=== PATIENT | female | born 1955 | race Caucasian/White ===

== ENCOUNTER 2017-09-17 13:49 | Emergency (ER) | payer MEDICARE ==
--- NOTE | 2017-09-17 15:28 | ULT ---
RIGHT LOWER EXTREMITY VENOUS DUPLEX STUDY: Date: 09/17/17 HISTORY: Right lower extremity pain and edema. FINDINGS: Deep veins of right lower extremity evaluated with color Doppler ultrasound and spectral analysis. Co mpression studies performed. FINDINGS: Common femoral, profunda femoral, superficial femoral, popliteal, greater saphenous, and posterior ti bial veins evaluated. These veins showed normal compression and blood flow. No evidence of deep venou s thrombosis identified. IMPRESSION: No evidence of right lower extremity deep venous thrombosis. POS: [facility]
--- NOTE | 2017-09-17 15:31 | RAD ---
RIGHT FOOT 3 VIEWS: Date: 09/17/17 HISTORY: Right foot pain and swelling. FINDINGS: Enthesophyte from plantar calcaneus. Tarsals appear unremarkable. Mild DJD at the first tarsometatars al joint. No fracture or acute abnormality. IMPRESSION: No acute osseous abnormality identified. POS: [facility]
[2017-09-17 16:46] LABS: #Basophils 0.1 thou/uL (0.0-0.2); #Eosinphils 0.1 thou/uL (0.0-0.7); #Monocytes 0.5 thou/uL (0.11-0.59); #Neutrophils 6.6 thou/uL (1.40-6.50); %Eosinophils 1.6 % (0.0-10.0); %Monocytes 5.6 % (0.0-10.0); Hematocrit 36.6 % (36.0-47.0); Mean Platelet Volume 7.2 fL (7.4-10.4); Red Blood Cell (RBC) Count 4.22 mill/uL (4.20-5.40); White Blood Cell (WBC) Count 9.3 thou/uL (4.8-10.8)
[2017-09-17 17:13] LABS: ALT (SGPT) 8 U/L (8-55); AST (SGOT) 10 U/L (5-34); Alkaline Phosphatase 107 U/L (40-150); Anion Gap 13 mmol/L (10-20); BUN (Urea Nitrogen) 5 mg/dL (9.8-20.1); Bilirubin, Total 0.3 mg/dL (0.2-1.2); CK (CPK) 60 U/L (29-168); Calc. Creatinine Clearance 0 mL/min (70-130); Calcium 9.1 mg/dL (7.8-10.44); Carbon Dioxide 27 mmol/L (23-31); Chloride 104 mmol/L (98-107); Estimated GFR-MDRD 61; Globulin 3.1 g/dL (2.4-3.5); Lipase 39 U/L (8-78); Protein, Total 6.9 g/dL (6.0-8.3)
[2017-09-17 17:17] LABS: Troponin I Less than 0.010 ng/mL (< 0.028)
--- NOTE | 2017-09-17 17:49 | RAD ---
EXAM: ONE VIEW CHEST 09/17/17 HISTORY: Cough. COMPARISON: 07/01/13 FINDINGS: Portable upright chest: Atherosclerosis of the aorta. Normal cardiac silhouette. Pulmonary vessels are slightly prominent. No consolidation or mass. No pneumothorax. No acute osseous abnormalities. Old left rib fractures noted . IMPRESSION: Mild pulmonary vascular prominence. POS: [facility]
--- NOTE | 2017-10-07 13:54 | EKG ---
Test Reason : Blood Pressure : / mmHG Vent. Rate : 076 BPM Atrial Rate : 076 BPM P-R Int : 196 ms QRS Dur : 144 ms QT Int : 422 ms P-R-T Axes : 049 -01 117 degrees QTc Int : 474 ms Sinus rhythm with occasional Premature ventricular complexes Left bundle branch block Abnormal ECG Confirmed by JOE SCHULZ, SIMIN ([id number]), development editor LAURY MERRILL ([id number]) on 10/07/2017 1:52:37 PM Referred By: Confirmed By:SIMIN DIAZ MD
== END 2017-09-17 18:00 | disposition home or self-care (01) ==
LOC: ERS 13:49
DX: M79.89 Other specified soft tissue disorders (principal); I25.10 Atherosclerotic heart disease of native coronary artery without angina pectoris; E11.9 Type 2 diabetes mellitus without complications; J44.9 Chronic obstructive pulmonary disease, unspecified; F32.9 Major depressive disorder, single episode, unspecified; F17.210 Nicotine dependence, cigarettes, uncomplicated
CPT/HCPCS: 36415; 71010; 80053; 82010; 82550; 82553; 83690; 84484; 85025; 93005; 99406

== ENCOUNTER 2018-05-24 18:02 | Emergency (ER) | payer MEDICAID, MEDICARE ==
[2018-05-24] MEDS ORDERED: Adacel (T-DAP) 0.5 ML VIAL ONE (18:58)
[2018-05-24] MEDS ORDERED: traMADol HCl 50 MG TAB ONE (19:11)
--- NOTE | 2018-05-24 19:25 | RAD ---
FRONTAL AND LATERAL IMAGING OF THE RIGHT TIBIA AND FIBULA: 05/24/18 COMPARISON: None. HISTORY: Fall. FINDINGS: The proximal tibia and fibula are not fully imaged on this examination. Imaged portions of the right tibia and fibula demonstrate no displaced fracture or evidence of dislocation. IMPRESSION: No acute findings. POS: [facility]
--- NOTE | 2018-05-24 19:27 | RAD ---
FRONTAL RADIOGRAPH PELVIS 05/24/18 COMPARISON: None. HISTORY: Fall. FINDINGS: There are atherosclerotic calcifications within the medial aspect of bilateral proximal thighs. There is atherosclerotic calcification within the pelvis as well. The pelvic ring is intact. There is no w idening of the sacroiliac joints of the pubic symphysis. The femoral heads project normally over thei r respective acetabulum. No displaced fracture or evidence of dislocation seen. IMPRESSION: No acute findings. POS: [facility]
--- NOTE | 2018-05-24 19:29 | RAD ---
FOUR VIEWS OF THE RIGHT KNEE: 05/24/18 COMPARISON: 12/29/03 HISTORY: Fall. FINDINGS: There is a prominent knee joint effusion with joint capsular distention. There is atherosclerotic matilda cification posterior to the distal femur and the knee joint. There is a comminuted and impacted fract ure of the lateral tibial plateau. No evidence for dislocation. IMPRESSION: Fracture of the lateral tibial plateau with an associated prominent knee joint effusion. Orthopedic c onsultation advised. POS: [facility]
--- NOTE | 2018-05-24 19:30 | RAD ---
TWO VIEWS OF THE RIGHT HIP 05/24/18 COMPARISON: None. HISTORY: Fall. FINDINGS: There is mild superior joint space narrowing with mild lateral acetabular osteophyte formation. There is no displaced fracture or evidence of dislocation seen. There is atherosclerotic calcification wit hin the medial right thigh. IMPRESSION: No displaced fracture or evidence of dislocation. POS: [facility]
--- NOTE | 2018-05-24 19:36 | RAD ---
THREE VIEWS OF THE RIGHT HAND: 05/24/18 COMPARISON: None. HISTORY: Fall. FINDINGS: The bones are demineralized. No radiopaque foreign body, subcutaneous gas, displaced fracture, or rodney dence of dislocation is seen. IMPRESSION: No displaced fracture seen. POS: [facility]
--- NOTE | 2018-05-24 19:37 | RAD ---
FRONTAL AND LATERAL IMAGING OF THE RIGHT FOREARM: 05/24/18 COMPARISON: None. HISTORY: Fall. FINDINGS: The bones are demineralized. There is no displaced fracture or evidence of dislocation. IMPRESSION: No acute findings. POS: [facility]
== END 2018-05-24 20:21 | disposition home or self-care (01) ==
LOC: ERS 18:02
DX: S82.201A Unspecified fracture of shaft of right tibia, initial encounter for closed fracture (principal); S51.811A Laceration without foreign body of right forearm, initial encounter; E11.9 Type 2 diabetes mellitus without complications; I25.10 Atherosclerotic heart disease of native coronary artery without angina pectoris; J44.9 Chronic obstructive pulmonary disease, unspecified; F17.210 Nicotine dependence, cigarettes, uncomplicated; Z71.6 Tobacco abuse counseling; W19.XXXA Unspecified fall, initial encounter
CPT/HCPCS: 72170; 90715; 99406

== ENCOUNTER 2018-09-26 15:33 | Inpatient (IN) | payer MEDICARE ==
--- NOTE | 2018-09-26 16:27 | RAD ---
CHEST ONE VIEW: 09/26/18 HISTORY: Syncope. COMPARISON: Radiograph 09/17/17. FINDINGS: Heart size is mildly enlarged. There is dilatation of the pulmonary arteries. There is pulmonary veno us congestion. No pneumothorax. No acute osseous abnormality. IMPRESSION: Cardiomegaly with mild pulmonary venous congestion. POS: [facility]
[2018-09-26 16:46] LABS: #Basophils 0.1 thou/uL (0.0-0.2); #Eosinphils 0.2 thou/uL (0.0-0.7); #Lymphocytes 1.4 thou/uL (1.20-3.40); #Monocytes 0.9 thou/uL (0.11-0.59); #Neutrophils 11.5 thou/uL (1.40-6.50); %Basophils 0.4 % (0.0-1.0); %Eosinophils 1.3 % (0.0-10.0); %Monocytes 6.1 % (0.0-10.0); %Neutrophils 82.2 % (42.0-75.0); Hemoglobin 14.7 g/dL (12.0-16.0); Mean Corpuscular HGB CONC 33.7 g/dL (32.0-36.0); Mean Corpuscular Hemoglobin 29.4 pg (27.0-31.0); Mean Corpuscular Volume 87.2 fL (78.0-98.0); Mean Platelet Volume 7.4 fL (7.4-10.4); Platelet Count 364 thou/uL (130-400); RBC Distribution Width 12.8 % (11.5-14.5); Red Blood Cell (RBC) Count 4.99 mill/uL (4.20-5.40)
--- NOTE | 2018-09-26 16:55 | CT ---
NONCONTRAST HEAD CT: Date: 09/26/18 HISTORY: Syncope and lightheadedness. Weakness. COMPARISON: 02/11/04. TECHNIQUE: A noncontrast head CT is performed from the skull base to the skull vertex. FINDINGS: No parenchymal hemorrhage or extra-axial hematoma. No midline shift. Basilar cisterns are patent. Bra in volume is age-appropriate. Cortical curry-white matter differentiation is preserved. Ventricles and sulci are patent and symmetric. Adequate aeration of the sinuses and mastoid air cells. There is cav ernous carotid atherosclerosis. Calvarium is intact. IMPRESSION: No acute intracranial process. POS: [facility]
[2018-09-26 17:05] LABS: ALT (SGPT) 10 U/L (8-55); AST (SGOT) 9 U/L (5-34); Albumin 4.3 g/dL (3.4-4.8); Alkaline Phosphatase 168 U/L (40-150); Anion Gap 14 mmol/L (10-20); BUN (Urea Nitrogen) 14 mg/dL (9.8-20.1); Bilirubin, Total 0.5 mg/dL (0.2-1.2); Calc. Creatinine Clearance 0 mL/min (70-130); Calcium 10.6 mg/dL (7.8-10.44); Carbon Dioxide 30 mmol/L (23-31); Chloride 97 mmol/L (98-107); Estimated GFR-MDRD 54; Globulin 3.7 g/dL (2.4-3.5); Glucose 225 mg/dL (80-115); Lipase 29 U/L (8-78); Potassium 4.1 mmol/L (3.5-5.1); Sodium 137 mmol/L (136-145)
[2018-09-26] MEDS ORDERED: Acetaminophen 325 MG TAB PO PRN (19:16)
[2018-09-26] MEDS ORDERED: Ondansetron ODT 4 MG TAB PO PRN (19:16)
[2018-09-26] MEDS ORDERED: Ondansetron PF 4 MG/2 ML Vial IVP PRN (19:16)
[2018-09-26] MEDS ORDERED: Dextrose 5% in Water 1,000 ML IV PRN (19:25)
[2018-09-26] MEDS ORDERED: Dextrose 50% Abboject 50 ML SYRINGE SLOW IVP PRN (19:25)
[2018-09-26 20:24] LABS: Troponin I Less than 0.010 ng/mL (< 0.028)
[2018-09-26 20:35] VITALS: BMI 27.3
[2018-09-26] MEDS ORDERED: Atorvastatin Calcium 20 MG TAB PO SCH (21:00)
[2018-09-26] MEDS ORDERED: Lisinopril 20 MG TAB PO SCH (21:00)
[2018-09-26 21:07] LABS: Lactic Acid 1.7 mmol/L (0.5-2.2)
[2018-09-26 21:52] LABS: Bilirubin Negative (Negative); Blood, Urine Negative (Negative); Clarity CLEAR (Clear); Glucose, Urine (Dipstick) 100 mg/dL (Negative); Leukocyte Negative (Negative); Nitrite Negative (Negative); Protein, Urine (Dipstick) Negative (Neg-Trace); Specific Gravity, Urine 1.007 (1.002-1.036); Urobilinogen 0.2 mg/dL (0.2-1.0)
[2018-09-26 22:03] LABS: Bacteria/HPF None Seen HPF (None Seen); Hyaline Casts/LPF 0-3 HYALINE CAST LPF (0-3 Hyaline); RBC/HPF 0-3 HPF (0-3); Squamous Epithelial None Seen HPF (0-3); WBC/HPF None Seen HPF (0-3)
--- NOTE | 2018-09-26 22:11 | PDOC.EVN ---
Event Note - Event Note Event Note: Patient H&P was aborted during dictation. Assessment and plan as below. 1. Possible TIA, obtain MRI for further evaluation. Check carotid doppler. Order PT/OT. 2. Generalized weakness, as above, order PT/OT walking program. 3. Ataxia, hold patient home tramadol, nortriptyline and xanax. Order urine drug screen 4. Leukocytosis, check urinalysis and urine culture if indicated. 5. Hx of DM type II, hold home dose of metformin, start on insulin sliding scale. Accucheks daily. 6. Code Status: FULL CODE.
[2018-09-26] MEDS: Famotidine 20 MG TAB PO SCH (22:14)
[2018-09-26] MEDS: Carvedilol 6.25 MG TAB PO SCH (22:14)
--- NOTE | 2018-09-26 22:14 | ULT ---
CAROTID DOPPLER: 09/26/18 Ultrasound doppler study is performed of the extracranial carotid arteries with color doppler, spectr al analysis and velocity recordings. INDICATION: Unsteady gait. TIA. Ultrasound images show echogenic plaque bilaterally involving both internal carotid arteries. Velocit ies are increased in the right internal carotid artery and measured at 129 cm/s systolic. This does i ndicate hemodynamically significant stenosis in the 50-69% range. Velocities in the left ICA are within normal range. Velocities in the left ECA are incidentally noted to be elevated. Vertebral arteries are antegrade. IMPRESSION: 1. Moderate echogenic plaque bilaterally. 2. Increased velocities in the right internal carotid artery indicate hemodynamically significan tly stenosis. Suggest follow up CT angio of neck. POS: [facility]
[2018-09-26] MEDS: Nicotine 14 MG PATCH TD SCH (22:18)
[2018-09-26 22:52] LABS: Troponin I 0.011 ng/mL (< 0.028)
[2018-09-26 23:25] LABS: Amphetamine Not Detected (NotDetected); Barbiturates Screen Not Detected (NotDetected); Benzodiazepine Screen Detected (NotDetected); Cocaine Metabolite Screen Not Detected (NotDetected); Medtox Reader # READER 4; Methadone Not Detected (NotDetected); Methamphetamine Not Detected (NotDetected); Opiate Screen Detected (NotDetected); Oxycodone Screen Not Detected (NotDetected); Phencyclidine (PCP) Not Detected (NotDetected); THC/Cannabinoid Screen Not Detected (NotDetected); Tricyclic Screen Not Detected (NotDetected)
[2018-09-26 23:26] LABS: Medtox Control Line Valid? VALID (VALID)
[2018-09-27 05:52] LABS: #Basophils 0.1 thou/uL (0.0-0.2); #Eosinphils 0.2 thou/uL (0.0-0.7); #Lymphocytes 1.7 thou/uL (1.20-3.40); #Monocytes 0.8 thou/uL (0.11-0.59); #Neutrophils 8.6 thou/uL (1.40-6.50); %Basophils 0.8 % (0.0-1.0); %Eosinophils 1.4 % (0.0-10.0); %Lymphocytes 14.6 % (21.0-51.0); %Monocytes 7.4 % (0.0-10.0); %Neutrophils 75.8 % (42.0-75.0); Hemoglobin 12.7 g/dL (12.0-16.0); Mean Corpuscular HGB CONC 33.2 g/dL (32.0-36.0); Mean Corpuscular Hemoglobin 28.9 pg (27.0-31.0); Mean Corpuscular Volume 87.2 fL (78.0-98.0); Mean Platelet Volume 7.2 fL (7.4-10.4); Platelet Count 324 thou/uL (130-400); RBC Distribution Width 12.8 % (11.5-14.5); White Blood Cell (WBC) Count 11.3 thou/uL (4.8-10.8)
[2018-09-27 06:06] LABS: Anion Gap 11 mmol/L (10-20); BUN (Urea Nitrogen) 11 mg/dL (9.8-20.1); Calc. Creatinine Clearance 76 mL/min (70-130); Carbon Dioxide 30 mmol/L (23-31); Chloride 102 mmol/L (98-107); Cholesterol 154 mg/dl (< 200 Desired); Estimated GFR-MDRD 68; Glucose 122 mg/dL (80-115); HDL Cholesterol 31 mg/dL (>60 Neg Risk); LDL Cholesterol, Calculated 89 mg/dL; Sodium 139 mmol/L (136-145); Triglycerides 172 mg/dL (Less than 150)
[2018-09-27] MEDS: Enoxaparin Sodium 40 MG/0.4 ML SYRINGE SC SCH (08:37)
[2018-09-27] MEDS: Famotidine 20 MG TAB PO SCH ×2 (08:38→21:25)
[2018-09-27] MEDS: Carvedilol 6.25 MG TAB PO SCH ×2 (08:38→21:25)
[2018-09-27] MEDS: Spironolactone 25 MG TAB PO SCH (08:38)
[2018-09-27] MEDS: Aspirin 81 mg Enteric Coated Tablet PO SCH (08:39)
[2018-09-27] MEDS ORDERED: Non-Formulary Item 1 EACH (Umeclidinium/Vilanterol [Anoro Ellipta 62.5/25 Mcg Inh] 1 PUFF PO SCH (09:00)
[2018-09-27] MEDS ORDERED: Prevnar 13-Val Conj/PF 0.5 ML SYRINGE IM ONE (09:00)
[2018-09-27] MEDS ORDERED: glipiZIDE 10 MG TAB PO SCH (09:00)
--- NOTE | 2018-09-27 10:14 | MRI ---
MRI BRAIN NONCONTRAST: DATE: 09/27/18 HISTORY: 63-year-old female with TIA, ataxia, falls, generalized weakness, dizziness, and lightheadedness. FINDINGS: The ventricles are normal in size and configuration. There is no restricted diffusion, midline shift or any other mass effect, recent intraaxial hemorrhage, or extraaxial fluid collection. There are a few scattered punctate T2-hyperintensities in the cerebral white matter consistent with mild chronic ischemic white matter changes due to mild microvascular atherosclerosis. There are also mild chronic ischemic white matter changes of the james. IMPRESSION: 1. Mild chronic ischemic white matter changes. 2. Otherwise negative. jn[] POS: [facility]
[2018-09-27] MEDS: Nicotine 14 MG PATCH TD SCH (11:15)
[2018-09-27] MEDS: HumaLOG 300 UNITS/3 ML VIAL SC PRN ×3 (11:16→21:28)
--- NOTE | 2018-09-27 13:59 | EKG ---
Test Reason : Blood Pressure : / mmHG Vent. Rate : 082 BPM Atrial Rate : 082 BPM P-R Int : 202 ms QRS Dur : 136 ms QT Int : 406 ms P-R-T Axes : 056 -18 110 degrees QTc Int : 474 ms Normal sinus rhythm Left bundle branch block Abnormal ECG Confirmed by CORNELIO ANGUIANO D.O. ([id number]), industrial editor MONA LEUNG ([id number]) on 09/27/2018 1:59:07 PM Referred By: Confirmed By:CORNELIO ANGUIANO D.O.
[2018-09-27] MEDS ORDERED: predniSONE 20 MG TAB PO SCH (14:16)
--- NOTE | 2018-09-27 14:26 | PDOC.PN ---
- Subjective Encounter Start Date: 09/27/18 Encounter Start Time: 12:00 She was seen while eating lunch. Started coughing excessively. States this happens often when she eats. Cough at baseline, senior living smoker. No painful swallowing or dysphagia. Reports collapse episodes were happening without warning. Occurred when she was sat upright and when standing. No further collapses since admission. Denies chest pain. No palpitations or SOB. No headaches or dizziness. No blurred vision or speech changes. Denies any abdominal pain. No n/v. No bowel changes. Feeling well in herself. - Objective Resuscitation Status - Order Detail: 09/26/18 19:16 Resuscitation Status Routine Co-Sign Provider: Resuscitation Status: FULL: Full Resuscitation MAR Reviewed: Yes Vital Signs & Weight: Vital Signs (12 hours) Temp Pulse Pulse Pulse Resp BP BP 09/27/18 13:39 74 16 09/27/18 13:15 09/27/18 11:51 98.5 F 78 16 09/27/18 09:56 78 79 102/51 L 09/27/18 08:38 121/60 09/27/18 07:42 09/27/18 07:40 71 16 09/27/18 07:29 98.6 F 75 16 09/27/18 04:20 98.5 F 75 20 BP BP Pulse Ox 09/27/18 13:39 09/27/18 13:15 90 L 09/27/18 11:51 104/55 L 89 L 09/27/18 09:56 109/54 L 09/27/18 08:38 09/27/18 07:42 93 L 09/27/18 07:40 09/27/18 07:29 121/60 93 L 09/27/18 04:20 118/56 L 92 L Weight Weight 159 lb 9.6 oz I&O: 09/26/18 09/27/18 09/28/18 06:59 06:59 06:59 Intake Total 100 Output Total 390 Balance -290 Result Diagrams: 09/27/18 05:35 09/27/18 05:35 Additional Labs: Accuchecks 09/27/18 09/27/18 09/26/18 10:46 05:35 21:39 POC Glucose 197 H 121 H 131 H Phys Exam - Physical Examination HEENT: PERRLA, sclera anicteric, oral pharynx no lesions Neck: no nodes, supple Respiratory: no wheezing, no rhonchi Upper airways sounds Cardiovascular: RRR Gastrointestinal: soft, non-tender, no distention, positive bowel sounds Musculoskeletal: no edema, pulses present Neurological: non-focal, normal sensation, moves all 4 limbs Lymphatic: no nodes Psychiatric: normal affect, A&O x 3 Skin: no rash Dx/Plan (1) Collapse Code(s): R55 - SYNCOPE AND COLLAPSE Status: Acute Plan: Carotid US with bilateral plaques, hemodynamically significant stenosis on the right. MRI brain: chronic ischemic changes, no acute abnormalities. Awaiting neuro review. Discussed with Dr. Santana who agrees with Echo. (2) Hypertension Code(s): I10 - ESSENTIAL (PRIMARY) HYPERTENSION Status: Chronic Qualifiers: Hypertension type: essential hypertension Qualified Code(s): I10 - Essential (primary) hypertension Plan: Continue medications. Monitor BP. Check orthostatic BP (3) Chronic kidney disease stage 2 Code(s): N18.2 - CHRONIC KIDNEY DISEASE, STAGE 2 (MILD) Status: Chronic Plan: Continue IV fluids. Comment: Check BMP today - Plan cont current plan of care, speech therapy -: ST to assess for swallowing difficulties/aspiration risk * .
--- NOTE | 2018-09-27 16:03 | CON ---
DATE OF CONSULTATION: 09/27/2018 TYPE OF REPORT: NEUROLOGY CONSULTATION. REASON FOR REFERRAL: Gait problems. HISTORY OF PRESENT ILLNESS: This is a 63-year-old female, who states that for about a week or so, she has had trouble walking. She states she has fallen several times. She denies lightheadedness or vertigo. She states that she will just be walking along and lose her balance. She does not pass out. She states that she hurt the left side of her abdomen with one of her falls. Her chronic medical problems include diabetes, coronary artery disease, CHF, and COPD. ALLERGIES: SHE STATES SHE IS ALLERGIC TO IODINE, BUT SHE STATES THAT SHE DID HAVE A CARDIAC CATH IN THE PAST AND WAS GIVEN BENADRYL AND PREDNISONE FOR TWO DAYS PRIOR TO THE CARDIAC CATH AND DID NOT HAVE ANY ALLERGIC REACTION. SHE ALSO STATES THAT SHE HAS A CHRONIC COUGH. PAST MEDICAL HISTORY: She has had diabetes, coronary artery disease, CHF, and COPD. She states that she has had stents in her heart. SOCIAL HISTORY: History of smoking. Alcohol is negative. FAMILY HISTORY: The patient does not know of any familial diseases. REVIEW OF SYSTEMS: ENT: She has a chronic cough. LUNGS: Occasional shortness of breath. She states she has COPD. HEART: She has a history of heart stent. ABDOMEN: She has some left upper quadrant pain after she fell. : Negative. EXTREMITIES: She states she has some arthritis and she has broken her tibia in the past due to a fall in the past. She states that she stepped off a step that was too high and that, that was not due to this current problem of falling. She denies any neck pain or lower back pain. SKIN: She states that she has bruises all over from recent falling. PHYSICAL EXAMINATION: GENERAL: She is awake and alert. VITAL SIGNS: Pulse is 74, respiratory rate 16, O2 saturation is 90% on 2.5 L/min of nasal cannula oxygen. Blood pressure was 104/55. ENT: Negative. LUNGS: Clear. HEART: No murmurs or gallops. ABDOMEN: Some pain in the left upper quadrant. EXTREMITIES: No clubbing, cyanosis, or edema. SKIN: She has multiple bruises. JOINTS: No swelling. NEUROLOGICAL: She is awake and alert, oriented x3. Cranial nerves 2 through 12 test normally. Carotids, no bruits. Motor 5/5 strength in the arms and legs. DTRs are 2+. Toes are downgoing. Sensation is normal to light touch, position, and vibration sense. Coordination, [id number] and [id number], is normal. DIAGNOSTIC STUDIES: Test results show that she had a CT of the head and an MRI of the brain without contrast, that show some mild chronic small-vessel disease, but no acute strokes. Carotid ultrasound showed that there was some echogenic plaque involving both internal carotid arteries. There was possibly hemodynamically significant stenosis in the right internal carotid artery in the 50% to 69% range. LABORATORY DATA: Sodium was 139, potassium 4.0, CO2 of 30, BUN is 11, creatinine is 0.84, glucose 197. Troponin is 0.011. Triglycerides 172, cholesterol 154. TSH was normal at 0.72. WBC was 11.3, hemoglobin 12.7, hematocrit 38.4, platelets 324,000, neutrophils 75.8, and lymphocytes 14.6. Urinalysis showed some glucose, no wbc's, and no protein. IMPRESSION: Episodes of falling, possibly it is related to peripheral neuropathy due to diabetes. Consider possibly if she has orthostatic hypotension. There does not appear to be any sign of a cerebrovascular accident on her MRI. Consider possibility of B12 deficiency. Also possibility of significant right internal carotid artery stenosis. Note that she has allergy to IV contrast, but has successfully had iodine contrast in the past with a cardiac cath when she had Benadryl and prednisone pre-treatment. PLAN: We will check a B12 level and orthostatic blood pressures. Also, we will get a CTA of the carotids and [place] with contrast, and we will premedicate with Benadryl and prednisone. MRA could alternatively be done, but that would not give us clear picture as a CTA of the neck. Discussed with the patient. Job ID: [id number]
--- NOTE | 2018-09-27 19:18 | PDOC.EVN ---
Event Note - Event Note Event Note: As per Dr. Cordoba, patient will undergo premedication prior to CTA Neck, therefore CTA Neck will not be done until Saturday09/29/2018. Patient with low sats 80-85% on RA. Patient has been noncompliant with Oxygen by [place]. Reports feeling well in herself. No CP/Sob though she seems to be visibly SOB. Advised to keep oxygen on. She has been receiving regular nebs. Patient not normally on oxygen at home. Plan to change to inpatient status, meets criteria due to new onset hypoxia with background of CHF and COPD.
[2018-09-27] MEDS: Atorvastatin Calcium 40 MG TAB PO SCH (21:24)
[2018-09-27] MEDS: diphenhydrAMINE 25 MG CAP PO SCH (21:28)
[2018-09-28 05:59] LABS: #Lymphocytes 0.9 thou/uL (1.20-3.40); #Monocytes 0.5 thou/uL (0.11-0.59); #Neutrophils 9.8 thou/uL (1.40-6.50); %Basophils 0.1 % (0.0-1.0); %Eosinophils 0.2 % (0.0-10.0); %Lymphocytes 8.2 % (21.0-51.0); %Monocytes 4.6 % (0.0-10.0); %Neutrophils 86.9 % (42.0-75.0); Hemoglobin 12.7 g/dL (12.0-16.0); Mean Corpuscular HGB CONC 31.9 g/dL (32.0-36.0); Mean Corpuscular Hemoglobin 27.7 pg (27.0-31.0); Mean Platelet Volume 7.6 fL (7.4-10.4); Platelet Count 332 thou/uL (130-400); RBC Distribution Width 12.8 % (11.5-14.5); Red Blood Cell (RBC) Count 4.57 mill/uL (4.20-5.40); White Blood Cell (WBC) Count 11.3 thou/uL (4.8-10.8)
[2018-09-28 06:13] LABS: ALT (SGPT) Less than 7 U/L (8-55); AST (SGOT) 8 U/L (5-34); Albumin 3.6 g/dL (3.4-4.8); Alkaline Phosphatase 132 U/L (40-150); Anion Gap 11 mmol/L (10-20); BUN (Urea Nitrogen) 17 mg/dL (9.8-20.1); Bilirubin, Total 0.5 mg/dL (0.2-1.2); Calc. Creatinine Clearance 70 mL/min (70-130); Carbon Dioxide 28 mmol/L (23-31); Chloride 98 mmol/L (98-107); Estimated GFR-MDRD 61; Globulin 3.4 g/dL (2.4-3.5); Glucose 290 mg/dL (80-115); Potassium 4.2 mmol/L (3.5-5.1); Sodium 133 mmol/L (136-145)
[2018-09-28] MEDS: HumaLOG 300 UNITS/3 ML VIAL SC PRN ×3 (06:58→22:09)
[2018-09-28] MEDS: diphenhydrAMINE 25 MG CAP PO SCH ×3 (06:58→22:09)
--- NOTE | 2018-09-28 09:53 | PDOC.PN ---
- Subjective Encounter Start Date: 09/28/18 Encounter Start Time: 08:15 -: old records requested/rev Pt seen and examined, chart reviewed, taking over care Pt being held over weekend to premedicate for history of contrast allergy, CTA of head and neck tomorrow No F/C, no N/V/d/C, no sig change in symptoms, appreciate neuro input All systems reviewed and neg x as per HPI - Objective Resuscitation Status - Order Detail: 09/26/18 19:16 Resuscitation Status Routine Co-Sign Provider: Resuscitation Status: FULL: Full Resuscitation MAR Reviewed: Yes Vital Signs & Weight: Vital Signs (12 hours) Temp Pulse Resp BP BP Pulse Ox 09/28/18 08:24 96 09/28/18 08:22 70 20 09/28/18 07:34 98 F 72 18 105/52 L 93 L 09/28/18 03:19 97.5 F L 78 20 118/58 L 92 L 09/28/18 00:17 74 16 96 09/27/18 23:35 97.8 F 81 20 108/52 L 95 Weight Weight 159 lb 9.6 oz I&O: 09/27/18 09/28/18 09/29/18 06:59 06:59 06:59 Intake Total 100 720 Output Total 390 Balance -290 720 Result Diagrams: 09/28/18 05:30 09/28/18 05:30 Additional Labs: Accuchecks 09/28/18 09/27/18 09/27/18 05:55 20:35 17:03 POC Glucose 271 H 273 H 193 H 09/27/18 10:46 POC Glucose 197 H Radiology Reviewed by me: Yes EKG Reviewed by me: Yes Phys Exam - Physical Examination Constitutional: NAD HEENT: PERRLA, moist MMs, sclera anicteric, oral pharynx no lesions Neck: no nodes, no JVD, supple, full ROM Respiratory: no wheezing, no rales, no rhonchi, clear to auscultation bilateral Cardiovascular: RRR, no significant murmur, no rub Gastrointestinal: soft, non-tender, no distention, positive bowel sounds Musculoskeletal: no edema, pulses present Neurological: non-focal, normal sensation, moves all 4 limbs Lymphatic: no nodes Psychiatric: normal affect, A&O x 3 Skin: no rash, normal turgor, cap refill <2 seconds Dx/Plan (1) CAD Status: Chronic Comment: Stent to LAD 06/26- on plavix, ASA and ranexa (2) Chronic kidney disease stage 2 Code(s): N18.2 - CHRONIC KIDNEY DISEASE, STAGE 2 (MILD) Status: Chronic Comment: Check BMP today (3) COPD (chronic obstructive pulmonary disease) Status: Chronic Qualifiers: COPD type: unspecified COPD Qualified Code(s): J44.9 - Chronic obstructive pulmonary disease, unspecified Comment: Continues with symbicort BID- hasn't needed rescue inhaler- difficult to determine if SOB pulmonary, cardiac or both- will diurese and reevalaute next week. (4) Dehydration Code(s): E86.0 - DEHYDRATION Status: Resolved (5) Diabetes type 2, uncontrolled Code(s): E11.65 - TYPE 2 DIABETES MELLITUS WITH HYPERGLYCEMIA Status: Chronic Qualifiers: Glycemic state: with hyperglycemia Qualified Code(s): E11.65 - Type 2 diabetes mellitus with hyperglycemia Comment: Accuchecks 125- Managed by PCP- improved on increased glipizide to 10 mg HS and metformin 1000 mg BID (6) Dyslipidemia Code(s): E78.5 - HYPERLIPIDEMIA, UNSPECIFIED Status: Chronic Comment: Followed by PCP- on lipitor 40 mg HS (7) H/O heart artery stent Code(s): Z95.5 - PRESENCE OF CORONARY ANGIOPLASTY IMPLANT AND GRAFT Status: Chronic Comment: On plavix and ASA (8) Hypertension Code(s): I10 - ESSENTIAL (PRIMARY) HYPERTENSION Status: Chronic Qualifiers: Hypertension type: essential hypertension Qualified Code(s): I10 - Essential (primary) hypertension - Plan * .
[2018-09-28] MEDS: Aspirin 81 mg Enteric Coated Tablet PO SCH (10:10)
[2018-09-28] MEDS: Spironolactone 25 MG TAB PO SCH (10:10)
[2018-09-28] MEDS: Lisinopril 20 MG TAB PO SCH (10:10)
[2018-09-28] MEDS: Carvedilol 6.25 MG TAB PO SCH ×2 (10:11→22:10)
[2018-09-28] MEDS: predniSONE 20 MG TAB PO SCH (10:12)
[2018-09-28] MEDS: Enoxaparin Sodium 40 MG/0.4 ML SYRINGE SC SCH (10:12)
[2018-09-28] MEDS: Famotidine 20 MG TAB PO SCH ×2 (10:12→22:09)
[2018-09-28] MEDS ORDERED: Cyanocobalamin 1000 MCG/ML VIAL IM SCH ×3 (14:15→17:00)
--- NOTE | 2018-09-28 14:39 | PRG ---
DATE OF SERVICE: 09/28/2018 NEUROLOGY FOLLOWUP NOTE SUBJECTIVE: Neurology followup for falling. The patient states that she has not fallen today. She states that when she falls, she does lose her balance. She does not complain of any numbness in her feet, but she does have a chronic history of diabetes. She is currently on prednisone and Benadryl, being premedicated for CTA of the head and neck due to possible high-grade stenosis of the right internal carotid as seen on the ultrasound. The patient does give a history of iodine allergy in the past, years ago, but in more recent year, she has had a cardiac cath without any problem and she was premedicated before the cardiac cath. OBJECTIVE: GENERAL: On exam, she is awake and alert, oriented x3. VITAL SIGNS: Temperature 98.8; pulse is 80 and regular, sinus rhythm; respiratory rate 12; blood pressure 123/70. Note that she has had some orthostatics done. Her supine blood pressure was 119/71, sitting blood pressure was 113/56, and standing blood pressure was 95/55, so she was a little bit orthostatic. HEENT: Normal. LUNGS: Clear, but she does have a chronic cough. She says she has chronic bronchitis, history of smoking. NEUROLOGIC: Motor 5/5 strength. DTRs 2+. Toes downgoing. Sensation is normal. She has multiple bruises on various parts of her body from previous falls. LABORATORY DATA: Labs show a white count of 11.3, hemoglobin 12.7, hematocrit 39.8, platelet count 332,000. Sodium was 133 today, glucose 290 and another one was 116, potassium 4.2, chloride 98, BUN 17, creatinine 0.92. AST is 8, ALT is less than 7. Her B12 level is low at 179. MRI of the brain does not show any acute changes. It does show some mild chronic small-vessel disease and note that her carotid Doppler showed a possible high-grade stenosis in the right internal carotid. IMPRESSION: Falling, this could be multifactorial; low B12 could result in ataxia; also diabetes could give her peripheral neuropathy, but she does not appear to have a peripheral neuropathy at this time. She also is a little bit orthostatic, which could cause some balance problems. We need to rule out significant carotid stenosis of the right internal carotid. PLAN: Discussed results with her so far and the plan is to continue the premedication for the CTA with iodine of the carotids. She is on prednisone 20 mg a day and Benadryl 25 mg q.8 hours. We will give her B12 replacement and check her orthostatic blood pressures. Discussed with the patient. Job ID: [id number]
[2018-09-28] MEDS: Atorvastatin Calcium 40 MG TAB PO SCH (22:09)
[2018-09-28] MEDS: Nicotine 14 MG PATCH TD SCH (22:09)
[2018-09-29] MEDS: HumaLOG 300 UNITS/3 ML VIAL SC PRN ×2 (05:36→12:36)
[2018-09-29] MEDS: diphenhydrAMINE 25 MG CAP PO SCH ×2 (05:36→13:00)
[2018-09-29 06:33] LABS: #Basophils 0.1 thou/uL (0.0-0.2); #Eosinphils 0.1 thou/uL (0.0-0.7); #Lymphocytes 2.6 thou/uL (1.20-3.40); #Monocytes 0.9 thou/uL (0.11-0.59); #Neutrophils 8.7 thou/uL (1.40-6.50); %Basophils 0.7 % (0.0-1.0); %Eosinophils 0.8 % (0.0-10.0); %Lymphocytes 20.7 % (21.0-51.0); %Monocytes 7.5 % (0.0-10.0); %Neutrophils 70.3 % (42.0-75.0); Hemoglobin 13.2 g/dL (12.0-16.0); Mean Corpuscular HGB CONC 31.9 g/dL (32.0-36.0); Mean Corpuscular Hemoglobin 27.7 pg (27.0-31.0); Mean Corpuscular Volume 86.7 fL (78.0-98.0); Mean Platelet Volume 7.5 fL (7.4-10.4); Platelet Count 434 thou/uL (130-400); RBC Distribution Width 12.8 % (11.5-14.5); Red Blood Cell (RBC) Count 4.75 mill/uL (4.20-5.40); White Blood Cell (WBC) Count 12.4 thou/uL (4.8-10.8)
[2018-09-29 06:46] LABS: ALT (SGPT) 9 U/L (8-55); AST (SGOT) 8 U/L (5-34); Albumin 3.9 g/dL (3.4-4.8); Alkaline Phosphatase 126 U/L (40-150); Anion Gap 13 mmol/L (10-20); BUN (Urea Nitrogen) 27 mg/dL (9.8-20.1); Bilirubin, Total 0.3 mg/dL (0.2-1.2); Calc. Creatinine Clearance 49 mL/min (70-130); Calcium 10.4 mg/dL (7.8-10.44); Carbon Dioxide 28 mmol/L (23-31); Chloride 100 mmol/L (98-107); Estimated GFR-MDRD 41; Globulin 3.6 g/dL (2.4-3.5); Glucose 191 mg/dL (80-115); Potassium 3.9 mmol/L (3.5-5.1); Protein, Total 7.5 g/dL (6.0-8.3); Sodium 137 mmol/L (136-145)
[2018-09-29] MEDS: Famotidine 20 MG TAB PO SCH (08:34)
[2018-09-29] MEDS: Carvedilol 6.25 MG TAB PO SCH (08:34)
[2018-09-29] MEDS: Aspirin 81 mg Enteric Coated Tablet PO SCH (08:35)
[2018-09-29] MEDS: predniSONE 20 MG TAB PO SCH (08:35)
[2018-09-29] MEDS: Spironolactone 25 MG TAB PO SCH (08:35)
[2018-09-29] MEDS: Enoxaparin Sodium 40 MG/0.4 ML SYRINGE SC SCH (08:35)
[2018-09-29] MEDS: Lisinopril 20 MG TAB PO SCH (08:36)
--- NOTE | 2018-09-29 12:17 | HP ---
PRIMARY CARE PHYSICIAN: Dr. Mario Conteh. CHIEF COMPLAINT: Fall and generalized weakness. HISTORY OF PRESENT ILLNESS: Ms. Babin is a pleasant 63-year-old female with past medical history of coronary artery disease status post stent many years ago, systolic and diastolic congestive heart failure, hypertension, cardiomyopathy, dyslipidemia, chronic obstructive pulmonary disease, chronic renal insufficiency stage 2, anxiety, and diabetes mellitus, who had reported to [facility] with complaints of several falls over the last 4 to 5 days. She states she has been falling often at home, she states in the last 4 days, she is falling a total of 4 times. She denies any fever, chills, any headache or dizziness. She denies any blurred vision, chest pain, or shortness of breath. She states she is a little sore over onto her left side due to fall and trying to catch herself throughout these numerous falls at home. She denies any nausea or vomiting. She denies frequency and hesitancy with urination; however, she states she has a longstanding history of that. She denies any pain down her extremities, she reports overall not feeling well. She states she has a history of cavities and she had noticed some swelling on the left side of her mouth; however, this has been improving recently. She denies any pain with chewing. She reports for the last couple of days, she just felt more tired than usual. Upon arriving to the ER, her vital signs were unremarkable with BP of 148/69, pulse 80, respirations 20 non-labored, temperature 98.4. She had denied any pain at that time. O2 saturations 94% on room air. She underwent a CT of head, which showed no acute intracranial process. She also underwent a chest x-ray, which displayed cardiomegaly with mild pulmonary venous congestion. She denied any shortness of breath. She states that she has a history of COPD; however, has not been wearing her CPAP at night. She states she "has not needed it." Looking back at history, the patient underwent echocardiogram in January of 2017, which displayed an ejection fraction of 50% to 55%; however, it was suggestive of diastolic dysfunction. The remainder of echocardiogram was essentially unremarkable, but did display mild mitral regurgitation, mild tricuspid regurgitation, and left atrium mild dilation. She states she is pretty healthy and denies any less severe medical problems. Upon arrival to the ER, her lab work showed a WBC of 14, glucose of 225, alkaline phosphatase 168. Troponin was found to be less than 0.010 x2. Lipase was normal at 29. It was then determined that she would be admitted under observation to the stroke floor for TIA/CVA rule out. PAST MEDICAL HISTORY: Coronary artery disease status post stent, hypertension, hyperlipidemia, diabetes mellitus type 2, COPD, chronic renal insufficiency stage 2, GFR estimated at 54. PAST SURGICAL HISTORY: Appendectomy, cholecystectomy, and cardiac stenting. FAMILY HISTORY: Her brother has had coronary artery disease and multiple family members with diabetes mellitus history. SOCIAL HISTORY: She is a current smoker, she reports smoking about a half pack a day. She denies any alcohol use or further drug use. ALLERGIES: 1. CODEINE. 2. IODINE. 3. PENICILLINS. CURRENT MEDICATIONS: 1. Xanax 0.5 mg p.o. b.i.d. 2. Aspirin 325 mg p.o. at bedtime. 3. Celexa 10 mg p.o. at bedtime. 4. Fish oil 1000 mg p.o. q.a.m. 5. Metformin 1000 mg p.o. b.i.d. 6. Nortriptyline 50 mg p.o. at bedtime. 7. Atorvastatin 20 mg p.o. at bedtime. 8. Carvedilol 6.25 mg b.i.d. 9. Glipizide 10 mg p.o. q.a.m. 10. Lisinopril 80 mg p.o. at bedtime. 11. Spironolactone 25 mg p.o. daily. 12. Anoro Ellipta 62.5/25 mcg one puff inhalation daily. REVIEW OF SYSTEMS: CONSTITUTIONAL: She denies weight loss or weight gain. Denies fever or chills; however, does report some generalized weakness and frequent falls over the last 4 days. EYES: Denies any vision changes, double vision, blurred vision, tearing, or redness. No discharge. No pain. ENT: Denies headaches, dizziness, lightheadedness, sore throat, or trouble swallowing; however, does report some left-sided jaw pain, this has been improving over the last several days. She states this pain started about 2 to 3 weeks ago; however, it has almost resolved. CARDIOVASCULAR: Denies chest pain, palpitations, syncope, or dyspnea with exertion. Denies edema. RESPIRATORY: Denies any shortness of breath, wheezing, stridor, or cough. Does report history of COPD. GASTROINTESTINAL: Denies poor appetite. Does report some left-sided abdominal pain from recent fall, denies dysphagia, indigestion, heartburn, nausea, vomiting, diarrhea, or constipation. GENITOURINARY: Does report some frequency and urgency; however, denies dysuria, nocturia, or hematuria. MUSCULOSKELETAL: Reports generalized weakness. Denies any pain or swelling or redness. Denies any atrophy or cramps. NEUROLOGIC: Denies any sensory loss. Denies any loss of muscle coordination. Does report some generalized weakness and 4 falls in the last 4 days. PSYCHIATRIC: Denies any suicidal or homicidal ideation. Job ID: [id number]
--- NOTE | 2018-09-29 14:12 | CT ---
CT ANGIOGRAM NECK WITH 3D RENDERING CT ANGIOGRAM HEAD WITH 3D RENDERING: Date: 09/29/18 HISTORY: 63-year-old female with history of right carotid stenosis, TIA, falling, ataxia, muscle weakness. FINDINGS: NECK CTA WITH 3D RENDERING: There is a multinodular appearing left lobe of thyroid nodule extending caudally from the thyroid gla nd on the left side. This area of multilobular nodularity measures approximately 1.6 x 2.5 cm. There are scattered areas of calcific vascular disease involving the left subclavian, right and left common carotid arteries, innominate artery, right vertebral artery, and right subclavian arteries. There is a prominent calcified plaque involving the right ICA, evidence for approximately 50% stenosis. There is less than 50% stenosis of the proximal left ICA with associated calcified plaque. Stenoses amount s are given using NASCET criteria. There is no adenopathy within the neck. No other mass or abnormal fluid collection. IMPRESSION: Approximately 50% stenosis of the proximal right ICA with associated calcified plaque. Less than 50% stenosis of the left ICA. Multilobulated appearing thyroid nodule extending caudally off the lower le ft lobe of the thyroid. No evidence for adenopathy or abscess or significant abnormal fluid collectio n within the neck. HEAD CT WITH 3D RENDERING: There are some calcified atherosclerotic plaques involving the intracranial and extracranial internal carotid arteries. No evidence for major branch occlusion. No evidence for a M1 segment occlusion. Ve rtebrobasilar arteries appear unremarkable. Visualized anterior cerebral artery is unremarkable. IMPRESSION: No hemodynamically significant high grade stenosis or occlusive process intracranially. No evidence f or intracranial aneurysm. Atherosclerosis of the intracranial internal carotid arteries with calcifie d plaques. POS: LISA
[2018-09-29] MEDS ORDERED: diphenhydrAMINE 25 MG CAP PO PRN (15:45)
[2018-09-29 16:08] VITALS: BP 107/53; TEMP 98.2
--- NOTE | 2018-09-30 03:37 | DIS ---
DATE OF ADMISSION: 09/27/2018 DATE OF DISCHARGE: 09/29/2018 DISCHARGE DIAGNOSES: 1. Generalized weakness, multifactorial. 2. Polypharmacy. 3. Falls, likely secondary to polypharmacy. 4. Hypertension. 5. Coronary artery disease, chronic and stable. 6. Diabetes mellitus type 2. CONSULTATIONS: Dr. Cordoba with Neurology Service. PERTINENT LAB AND X-RAY FINDINGS: Creatinine ranged between 0.84 to 1.30. Estimated GFR ranged between 54 to 68. Lactic acid level ranged between 1.7 to 2.2. Magnesium level is 1.6. B12 level is 179. TSH 0.72. Total cholesterol 154, triglycerides 172, HDL 31, LDL 89. CBC showed a white blood cell count ranged between 11.3 to 14.0. Urine drug screen positive for opiates and benzodiazepines. CT of the brain without contrast dated 09/26/2018, showed no acute intracranial process. Carotid Doppler study dated 09/26/2018, showed moderate echogenic plaque bilaterally, increased velocities in the right internal carotid artery. 2D transthoracic echocardiogram dated 09/27/2018, showed ejection fraction of 60% to 65%. Mild tricuspid and mitral valve regurgitation. No intracardiac thrombus noted. MRI of the brain dated 09/27/2018, showed no acute intracranial process. CT angiogram of the head and neck dated 09/29/2018, showed no hemodynamically significant stenosis of the internal carotid system. HOSPITAL COURSE: The patient was admitted to the Stroke Unit after initially presenting with generalized weakness and falls. The patient underwent extensive evaluation including multiple imaging studies showing essentially negative findings. The patient was evaluated by the Physical and Occupational Therapy Service and was noted ambulatory up to 550 feet without difficulty. Metabolic screening showed evidence of polypharmacy, likely due to opiates and benzodiazepine effect. The patient was evaluated by the Neurology Service, undergoing evaluation with attention to carotid artery system after concern for potential focal stenosis. CT angiogram of the neck, however, revealed no specific hemodynamically significant stenosis. The patient overall remained clinically stable during the hospital course, tolerating regular oral intake, voiding appropriately. I have examined the patient at the time of discharge and discussed followup instructions. The patient verbalized understanding and in agreement, ready on discharge on 09/29/2018. DISCHARGE MEDICATIONS: 1. Xanax 0.5 mg p.o. b.i.d. 2. Aspirin 325 mg p.o. daily. 3. Lipitor 20 mg p.o. at bedtime. 4. Coreg 6.25 mg p.o. b.i.d. 5. Celexa 10 mg p.o. at bedtime. 6. Glipizide 10 mg p.o. q.a.m. 7. Nortriptyline 50 mg p.o. at bedtime. 8. Spironolactone 25 mg p.o. daily. 9. Anoro Ellipta 62.5/25 mcg 1 puff inhaled daily. FOLLOWUP: The patient may follow up with within 7 days of discharge. CONDITION ON DISCHARGE: Stable. ACTIVITY: Ad-joão. DIET: ADA and heart healthy. CODE STATUS: Full. DISPOSITION: Home on 09/29/2018 TIME SPENT: Total time preparing and coordinating discharge is 31 minutes. Job ID: [id number]
== END 2018-09-29 17:54 | disposition home or self-care (01) | DRG 92 ==
LOC: ERS 15:33 → 2SE 20:28 → OBSVTOIN 09-27 19:36
PROVIDERS: ADMIT Family Medicine; ATTEND Family Medicine
DX: R27.0 Ataxia, unspecified (principal); I13.0 Hypertensive heart and chronic kidney disease with heart failure and stage 1 through stage 4 chronic kidney disease, or unspecified chronic kidney disease; I50.42 Chronic combined systolic (congestive) and diastolic (congestive) heart failure; I42.9 Cardiomyopathy, unspecified; R26.81 Unsteadiness on feet; R53.1 Weakness; I25.10 Atherosclerotic heart disease of native coronary artery without angina pectoris; Z95.5 Presence of coronary angioplasty implant and graft; E11.22 Type 2 diabetes mellitus with diabetic chronic kidney disease; N18.2 Chronic kidney disease, stage 2 (mild); E78.5 Hyperlipidemia, unspecified; J44.9 Chronic obstructive pulmonary disease, unspecified; F41.9 Anxiety disorder, unspecified; Z91.81 History of falling; F17.210 Nicotine dependence, cigarettes, uncomplicated; Z88.5 Allergy status to narcotic agent; Z88.0 Allergy status to penicillin; Z91.041 Radiographic dye allergy status; Z79.84 Long term (current) use of oral hypoglycemic drugs; Z79.82 Long term (current) use of aspirin; Z79.51 Long term (current) use of inhaled steroids; E86.0 Dehydration; E11.65 Type 2 diabetes mellitus with hyperglycemia; Z79.899 Other long term (current) drug therapy
CPT/HCPCS: 36415; 36416; 70450; 70496; 70498; 70551; 71045; 80048; 80053; 80061; 80306; 81001; 82607; 83605; 83690; 83735; 83880; 84443; 84484; 85025; 93005; 93306; 93880; 94640; G8978-GP-CI; G8979-GP-CI; G8980-GP-CI; G8987-GO-CI; G8988-GO-CI; G8989-GO-CI; G8996-GN-CI; G8997-GN-CI; J1650; J3420; J7506; J7620

== ENCOUNTER 2019-01-19 20:53 | Emergency (ER) | payer MEDICARE ==
--- NOTE | 2019-01-19 21:18 | RAD ---
LEFT WRIST 3 VIEWS: HISTORY: Fall, left wrist pain FINDINGS: There is a mildly angulated fracture involving the distal radius. An avulsion fracture of the ulnar s tyloid is also seen.
[2019-01-19] MEDS ORDERED: traMADol HCl 50 MG TAB ONE (23:12)
== END 2019-01-19 23:18 | disposition home or self-care (01) ==
LOC: ERS 20:53
DX: S52.532A Colles' fracture of left radius, initial encounter for closed fracture (principal); I25.10 Atherosclerotic heart disease of native coronary artery without angina pectoris; E11.9 Type 2 diabetes mellitus without complications; J44.9 Chronic obstructive pulmonary disease, unspecified; I50.9 Heart failure, unspecified; F17.210 Nicotine dependence, cigarettes, uncomplicated; W01.0XXA Fall on same level from slipping, tripping and stumbling without subsequent striking against object, initial encounter
CPT/HCPCS: 25600

== ENCOUNTER 2019-01-22 10:44 | Inpatient (IN) | payer MEDICARE ==
[2019-01-22] MEDS ORDERED: Naloxone HCl 0.4 mg/ml Vial ONE ×2 (10:51→14:46)
[2019-01-22 11:18] LABS: #Lymphocytes 0.8 thou/uL (1.20-3.40); #Monocytes 1.1 thou/uL (0.11-0.59); #Neutrophils 14.7 thou/uL (1.40-6.50); %Eosinophils 0.2 % (0.0-10.0); %Lymphocytes 4.9 % (21.0-51.0); %Monocytes 6.4 % (0.0-10.0); %Neutrophils 88.5 % (42.0-75.0); Hemoglobin 13.4 g/dL (12.0-16.0); Mean Corpuscular HGB CONC 31.7 g/dL (32.0-36.0); Mean Corpuscular Volume 85.4 fL (78.0-98.0); Mean Platelet Volume 8.1 fL (7.4-10.4); Platelet Count 315 thou/uL (130-400); RBC Distribution Width 12.6 % (11.5-14.5); Red Blood Cell (RBC) Count 4.94 mill/uL (4.20-5.40); White Blood Cell (WBC) Count 16.6 thou/uL (4.8-10.8)
--- NOTE | 2019-01-22 11:28 | CT ---
Exam: CT brain without contrast HISTORY: Altered mental status COMPARISON: 09/26/2018 TECHNIQUE: Multiple contiguous axial images were obtained and a CT of the brain without contrast. FINDINGS: There is a small amount of motion on this examination limiting this exam. The brain is norm al in morphology and attenuation without focal lesions or confluent areas of infarction. There is no evidence of hydrocephalus, intracranial hemorrhage, or extra-axial fluid collection. The calvarium and overlying soft tissues are unremarkable. The visualized paranasal sinuses and masto id air cells are well aerated. IMPRESSION: No evidence of acute intracranial abnormality
--- NOTE | 2019-01-22 11:30 | RAD ---
EXAM: Single view of the chest HISTORY: Altered mental status COMPARISON: 09/26/2018 FINDINGS: Single view of the chest shows a normal sized cardiomediastinal silhouette. Atherosclerotic ulcerations are seen in the aorta. There is no evidence of consolidation, mass, or pleural effusion. The bones are unremarkable. IMPRESSION: No evidence of acute cardiopulmonary disease
[2019-01-22 11:51] LABS: ALT (SGPT) 20 U/L (8-55); AST (SGOT) 14 U/L (5-34); Albumin 4.3 g/dL (3.4-4.8); Alkaline Phosphatase 210 U/L (40-150); Anion Gap 19 mmol/L (10-20); BUN (Urea Nitrogen) 27 mg/dL (9.8-20.1); Bilirubin, Total 0.5 mg/dL (0.2-1.2); Calc. Creatinine Clearance 0 mL/min (70-130); Calcium 9.8 mg/dL (7.8-10.44); Carbon Dioxide 29 mmol/L (23-31); Chloride 93 mmol/L (98-107); Estimated GFR-MDRD 36; Globulin 3.1 g/dL (2.4-3.5); Glucose 172 mg/dL (80-115); Potassium 4.8 mmol/L (3.5-5.1); Protein, Total 7.4 g/dL (6.0-8.3); Sodium 136 mmol/L (136-145)
[2019-01-22 12:03] LABS: Amphetamine Not Detected (NotDetected); Barbiturates Screen Not Detected (NotDetected); Benzodiazepine Screen Detected (NotDetected); Cocaine Metabolite Screen Not Detected (NotDetected); Medtox Control Line Valid? VALID (VALID); Medtox Reader # READER 4; Methadone Not Detected (NotDetected); Methamphetamine Not Detected (NotDetected); Opiate Screen Not Detected (NotDetected); Oxycodone Screen Not Detected (NotDetected); Phencyclidine (PCP) Not Detected (NotDetected); THC/Cannabinoid Screen Not Detected (NotDetected); Tricyclic Screen Not Detected (NotDetected)
[2019-01-22 12:07] LABS: Acetaminophen Less than 6.0 mcg/mL (10.0-30.0); Alcohol Less than 10 mg/dL (Less than 10); Lipase 68 U/L (8-78); Salicylate Less than 8.0 mg/dL (15.0-30.0)
[2019-01-22 12:15] LABS: Actual Bicarbonate (HCO3a) 29.2 mEq/L (22-28); Analyzer IN Cardio ER; Carboxyhemoglobin (COHb) 2.6 gm% (0.0-3.0); O2 Tension (PaO2) 66.1 mmHg (> 80.0); Potassium - ABG Lab 4.27 mmol/L (3.70-5.30); pH, Arterial 7.28 (7.35-7.45)
[2019-01-22 12:17] LABS: ALV-art Gradient 53.665 (0-20); CO2 Tension 63.9 mmHg (35.0-45.0); Puncture Site RR
[2019-01-22 13:41] LABS: Bilirubin Negative (Negative); Blood, Urine Negative (Negative); Clarity TURBID (Clear); Glucose, Urine (Dipstick) Negative (Negative); Leukocyte Negative (Negative); Nitrite Negative (Negative); Protein, Urine (Dipstick) Negative (Neg-Trace); Specific Gravity, Urine 1.017 (1.002-1.036); Urobilinogen 0.2 mg/dL (0.2-1.0)
[2019-01-22 13:59] LABS: Actual Bicarbonate (HCO3a) 29.9 mEq/L (22-28); Analyzer IN Cardio ER; Base Excess (BEa) 2.7 mEq/L (-2.0 to +3.0); CO2 Tension 58.1 mmHg (35.0-45.0); Calcium, Ionized 1.18 mmol/L (1.12-1.30); Carboxyhemoglobin (COHb) 2.2 gm% (0.0-3.0); Hemoglobin (Hb) 12.9 g/dL (12.0-16.0); Potassium - ABG Lab 4.27 mmol/L (3.70-5.30); pH, Arterial 7.33 (7.35-7.45)
[2019-01-22 14:00] LABS: ALV-art Gradient 69.315 (0-20); O2 Tension (PaO2) 57.7 mmHg (> 80.0); Puncture Site RR
[2019-01-22] MEDS ORDERED: Naloxone HCl 0.4 mg/ml Vial IV SCH (15:00)
[2019-01-22] MEDS ORDERED: Naloxone HCl 0.4 mg/ml Vial IV PRN (15:41)
[2019-01-22 18:13] VITALS: BMI 29.9
[2019-01-22 18:15] LABS: Troponin I 0.014 ng/mL (< 0.028)
[2019-01-22] MEDS ORDERED: Enoxaparin Sodium 40 MG/0.4 ML SYRINGE SC SCH (20:13)
[2019-01-22] MEDS ORDERED: Acetaminophen 650 MG Suppository PR PRN (20:13)
[2019-01-22] MEDS ORDERED: Ondansetron ODT 4 MG TAB PO PRN (20:13)
[2019-01-22] MEDS ORDERED: Dextrose 5% in Water 1,000 ML IV PRN (20:13)
[2019-01-22] MEDS ORDERED: Dextrose 50% Abboject 50 ML SYRINGE SLOW IVP PRN (20:13)
[2019-01-22] MEDS ORDERED: Ondansetron PF 4 MG/2 ML Vial IVP PRN (20:13)
[2019-01-22] MEDS ORDERED: Acetaminophen 325 MG TAB PO PRN (20:13)
[2019-01-22] MEDS: Sodium Chloride 0.9% 1,000 ML IV SCH (21:32)
[2019-01-22] MEDS: Carvedilol 6.25 MG TAB PO SCH (21:33)
[2019-01-22] MEDS: Famotidine 20 MG TAB PO SCH (21:33)
[2019-01-22] MEDS: Aspirin 325 MG TAB PO SCH (21:33)
[2019-01-22] MEDS: Atorvastatin Calcium 20 MG TAB PO SCH (21:33)
[2019-01-22] MEDS: Famotidine/PF 20 mg/2ml Vial SLOW IVP SCH (21:34)
[2019-01-23 04:50] LABS: #Lymphocytes 1.2 thou/uL (1.20-3.40); #Monocytes 1.1 thou/uL (0.11-0.59); #Neutrophils 10.6 thou/uL (1.40-6.50); %Basophils 0.3 % (0.0-1.0); %Eosinophils 0.2 % (0.0-10.0); %Monocytes 8.8 % (0.0-10.0); %Neutrophils 81.7 % (42.0-75.0); Hemoglobin 11.3 g/dL (12.0-16.0); Mean Corpuscular Hemoglobin 27.6 pg (27.0-31.0); Mean Corpuscular Volume 86.3 fL (78.0-98.0); Mean Platelet Volume 7.8 fL (7.4-10.4); Platelet Count 301 thou/uL (130-400); RBC Distribution Width 12.7 % (11.5-14.5); Red Blood Cell (RBC) Count 4.08 mill/uL (4.20-5.40)
[2019-01-23 05:17] LABS: ALT (SGPT) 9 U/L (8-55); AST (SGOT) 7 U/L (5-34); Albumin 3.5 g/dL (3.4-4.8); Alkaline Phosphatase 154 U/L (40-150); Anion Gap 11 mmol/L (10-20); BUN (Urea Nitrogen) 25 mg/dL (9.8-20.1); Bilirubin, Total 0.5 mg/dL (0.2-1.2); Calc. Creatinine Clearance 48 mL/min (70-130); Calcium 9.4 mg/dL (7.8-10.44); Carbon Dioxide 31 mmol/L (23-31); Chloride 100 mmol/L (98-107); Estimated GFR-MDRD 38; Globulin 2.8 g/dL (2.4-3.5); Glucose 86 mg/dL (80-115); Potassium 3.8 mmol/L (3.5-5.1); Protein, Total 6.3 g/dL (6.0-8.3); Sodium 138 mmol/L (136-145)
[2019-01-23] MEDS: Sodium Chloride 0.9% 1,000 ML IV SCH ×2 (05:36→13:18)
--- NOTE | 2019-01-23 07:59 | HP ---
PRIMARY CARE PHYSICIAN: Dr. Mario Conteh. CHIEF COMPLAINT: Decreased responsiveness. HISTORY OF PRESENT ILLNESS: The patient with memory lapses, was unable to provide any significant history. She was brought in by EMS when a friend called due to mental status change. The patient was said not to be responding as before. EMS brought the patient in with concerns of overdose on tramadol. Reportedly, the patient was minimally responsive when EMS arrived with SpO2 of 60 to 70, which improved on non-rebreather mask. There was no history of trauma or fall. The patient reportedly had a fall on January 19 and presented to this ER, where she was given a prescription for tramadol after the fracture of the left upper limb. Review of medical records showed the patient also is on several psychotropic medications including amitriptyline, benzodiazepine, and SSRI. The patient initially was placed on BiPAP with no improvement in oxygenation and subsequently had arterial blood gas, which showed respiratory acidosis with elevated pCO2. She later got Narcan with improvement in mental status. Respiratory efforts , so the patient got nasal trumpet. Mental status and alertness improved following Narcan, but the patient went back to sleep and was somnolent when I examined the patient. Another dose of Narcan with Romazicon was given with improvement in mental status. The patient was able to tell me her name and the surrogate decision maker, who is her daughter, but she, however, had no memory of events leading to hospitalization. PAST MEDICAL HISTORY: Obtained from review of medical record shows the following; 1. Coronary artery disease, status post stent. 2. Hypertension. 3. Hyperlipidemia. 4. Type 2 diabetes mellitus. 5. COPD. 6. Chronic kidney disease, stage 2. 7. Recent left upper limb fracture. 8. Depression and anxiety. PAST SURGICAL HISTORY: 1. Appendectomy. 2. Cholecystectomy. 3. Cardiac stenting. FAMILY HISTORY: Significant for coronary artery disease in brother and diabetes in multiple family members. SOCIAL HISTORY: Review of medical records showed the patient was smoking as of September 2018. She cannot provide any history at this time. ALLERGIES: 1. CODEINE. 2. IODINE. 3. PENICILLIN. HOME MEDICATIONS: The patient was unable to provide these. However, review of medical records showed that the patient is on, 1. Xanax 0.5 mg p.o. b.i.d. 2. Aspirin 325 p.o. at bedtime. 3. Lipitor 40 mg p.o. at bedtime. 4. Carvedilol 6.25 mg p.o. b.i.d. 5. Celexa 10 mg p.o. at bedtime. 6. Glipizide 10 mg every morning. 7. Nortriptyline 50 mg p.o. at bedtime. 8. Spironolactone 25 mg p.o. daily. 9. Anoro Ellipta 62.5/25 mcg inhalation one puff daily. 10. Tramadol mg q.6 p.r.n. for pain. REVIEW OF SYSTEMS: This is grossly limited due to mental status. The patient, however, was able to deny chest pain, dysuria, and fever. PHYSICAL EXAMINATION: VITAL SIGNS: On presentation to the ER, pulse was 81, respiratory rate was 12, SpO2 was 69 on room air, blood pressure was 121/80. Current vitals show pulse 75, SpO2 of 95 on BiPAP, respiratory rate 12, and blood pressure 122/74. GENERAL: Awake, obese female, in no obvious distress. Afebrile. Anicteric. Acyanotic. HEENT: Normocephalic and atraumatic. Pupils are equal and reacting to light. RESPIRATORY: Fair air entry bilaterally with some transmitted sounds. No obvious crackle or rhonchi was appreciated. Air entry is decreased at both bases. CARDIOVASCULAR: Regular rhythm and rate with normal heart sounds 1 and 2. GI: Abdomen is obese, soft, nontender, nondistended with normal bowel sounds. NECK: Short and thick with excess subcutaneous tissue. EXTREMITIES: Grossly normal looking, atraumatic with no edema, except left upper limb, which is covered with dressing and splint. NEUROLOGIC: The patient is sleepy, but woke up with Narcan and Romazicon. She, however, has memory lapses. She also has slow mentation. Cranial nerves 2 through 12 are intact. The patient moves all extremities. DIAGNOSTIC DATA: CBC showed WBC count of 16.6, hemoglobin of 13.4, platelets of 315, and MCV of 85.4. CMP showed sodium 136, potassium 4.8, chloride 93, CO2 of 29, anion gap 19, BUN 27, creatinine 1.45, glucose 172, calcium 9.8, total bilirubin 0.5, AST 14, ALT 20, alkaline phosphatase 210, total protein 7.4, albumin 4.3, and globulin 3.1. Initial troponin on presentation was less than 0.01. TSH third generation is 0.296. Lipase is 68. Urine drug screen was positive for benzodiazepine. Plasma alcohol was less than 10. Acetaminophen was less than 6.0. Salicylate was less than 8.0. Urinalysis was unremarkable with specific gravity of 1.017 with negative protein, glucose, ketone, blood, nitrite, bilirubin, and leukocyte esterase. Chest x-ray showed normal size cardiomediastinal silhouette with no evidence of consolidation, mass, or pleural effusion. CT scan of the brain showed no acute evidence of acute intracranial abnormality. EKG showed normal sinus rhythm with left bundle-branch block. Rate was 76. EKG is unchanged from prior. X-ray of the left hand performed on January 19, 2019, showed mildly angulated fracture involving the distal radius with avulsion fracture of the ulnar styloid. ASSESSMENT: 1. Acute respiratory failure with hypoxia and hypercarbia: Due to respiratory depression from medications, tramadol, benzodiazepine, nortriptyline in a patient with chronic obstructive pulmonary disease and possible obstructive sleep apnea. Mental status improved with Narcan and Romazicon. Arterial blood gas showed respiratory acidosis with pH of 7.28, pCO2 of 73.9, and pO2 of 66. 2. Medication-induced respiratory depression. 3. Acute toxic and metabolic encephalopathy due to medications and hypercarbia and hypoxia. 4. Acute kidney injury: Creatinine was 0.98 in September 2018 and is currently 1.45. The patient is on spironolactone and looked clinically dry. 5. History of hypertension. 6. Type 2 diabetes mellitus. 7. Coronary artery disease, status post stent placement. 8. Suspected obstructive sleep apnea given the patient's habitus and short and thick neck with excess subcutaneous tissue. 9. Chronic obstructive pulmonary disease with no obvious feature of exacerbation. 10. Recent right wrist fracture, status post splint. 11. History of depression with anxiety. PLAN: 1. We will continue Narcan p.r.n. as well as BiPAP as needed. We will also start the patient on IV fluid therapy and monitor renal function. 2. We will rule out acute coronary syndrome and acute myocardial infarction with serial troponin. 3. We will hold all psychotropic medications. 4. Pain management will be with acetaminophen. 5. We will monitor blood pressure with a view to restarting antihypertensives if needed. We will, however, hold all diuretics and RAAS carmelina. 6. Bronchodilators as needed. 7. In the absence of any overt evidence of COPD exacerbation, we will not be providing any systemic steroids or antibiotics. We will, however, continue Anoro Ellipta. 8. The patient will be kept n.p.o. for now until mental status improves and stabilizes. 9. DVT prophylaxis with Lovenox. 10. Code status, full. The patient's daughter is the surrogate decision maker. Job ID: [id number]
[2019-01-23] MEDS ORDERED: Prevnar 13-Val Conj/PF 0.5 ML SYRINGE IM ONE (09:00)
[2019-01-23] MEDS: Enoxaparin Sodium 40 MG/0.4 ML SYRINGE SC SCH (09:22)
[2019-01-23] MEDS: Carvedilol 6.25 MG TAB PO SCH ×2 (09:22→19:58)
--- NOTE | 2019-01-23 12:02 | CON ---
DATE OF CONSULTATION: HISTORY OF PRESENT ILLNESS: A 63-year-old morbidly obese female, 95 kg, presented with respiratory failure, encephalopathy, mental status change, saturations are 69% on room air. She sees Dr. Henderson in our office. She is clearly confused this morning, unable to give much history. She was hypoxic in the ER, 60% to 70%. She was placed on non-rebreather. She is now on the MICU. Apparently, she is in the [place] independent living area. She can barely walk even 20 feet without getting markedly short of breath. She had a PFT done several years ago, which shows moderate to severe COPD. PAST MEDICAL HISTORY: COPD, CHF, and diabetes. PAST SURGICAL HISTORY: Cholecystectomy, tonsillectomy, multiple cardiac stents, and appendix. SOCIAL HISTORY: Apparently still smoking for tobacco abuse. ALLERGIES: CODEINE, IODINE, AND PENICILLIN. MEDICATIONS: List of medicines: 1. Glipizide 10. 2. Anoro 1 puff a day. 3. Aldactone 25. 4. Nortriptyline 50. 5. Celexa 10. 6. Coreg 6.25. 7. Atorvastatin 20. 8. Aspirin 325. 9. Xanax 0.5. SOCIAL AND FAMILY HISTORY: Otherwise noted. REVIEW OF SYSTEMS: Ten-point negative. PHYSICAL EXAMINATION: GENERAL: She is clearly encephalopathic. CT brain was negative. VITAL SIGNS: Saturations are barely 90 on 3 L, pulse is 80, respiratory rate 20, blood pressure 128/51. CHEST: Decreased breath sounds. No wheezing. CARDIAC: Normal S1 and S2. No gallops. ABDOMEN: Soft. No masses. EXTREMITIES: No edema. LABORATORY DATA: White count 13,000, hemoglobin and hematocrit 11 and 34, platelet count is normal. pO2 is 57, pCO2 of 50, and pH 7.33 on a BiPAP. Her creatinine is 1.4. IMPRESSION: 1. Acute on chronic respiratory failure. 2. Encephalopathy. 3. Coronary artery disease. 4. Sleep apnea. 5. Normal ejection fraction. 6. Chronic obstructive pulmonary disease exacerbation. 7. Morbid obesity. PLAN: She had a sleep study in 2015, apparently has a CPAP machine at home. Reviewing the results, it appears that she was on an auto-CPAP 10 to 15. Continue steroids, neb treatments, supportive care. We will follow and notify Dr. Henderson. Consultation note, 70 minutes, 50% direct patient care. Job ID: [id number]
--- NOTE | 2019-01-23 12:52 | PDOC.PN ---
- Subjective Encounter Start Date: 01/23/19 Encounter Start Time: 11:50 Subjective: Admitted with depressed COUNSELOR AIDE and respiration associated with resp acidosis -: More awake but still has poor memory of events leading to hospitalization. -: Denied SOB, fever, chest pain nausea or vomiting. - Objective Resuscitation Status - Order Detail: 01/22/19 15:01 Resuscitation Status Routine Resuscitation Status: FULL: Full Resuscitation Vital Signs & Weight: Vital Signs (12 hours) Temp Pulse Resp BP Pulse Ox 01/23/19 09:22 122/51 L 01/23/19 08:13 92 L 01/23/19 07:51 98.5 F 01/23/19 07:24 93 L 01/23/19 07:22 76 16 93 L 01/23/19 03:53 99.8 F H Weight Weight 169 lb Most Recent Monitor Data Heart Rate from ECG 83 NIBP 141/64 NIBP BP-Mean 89 Respiration from ECG 26 SpO2 89 I&O: 01/22/19 01/23/19 01/24/19 06:59 06:59 06:59 Intake Total 980 Balance 980 Result Diagrams: 01/23/19 04:43 01/23/19 04:43 Additional Labs: Accuchecks 01/23/19 01/23/19 01/22/19 10:58 05:36 22:06 POC Glucose 111 H 99 77 Phys Exam - Physical Examination Constitutional: NAD HEENT: PERRLA, moist MMs short thick neck Respiratory: no wheezing, no rales, no rhonchi fair air entry with some transmitted sound Cardiovascular: RRR Gastrointestinal: soft, non-tender, no distention, positive bowel sounds Musculoskeletal: no edema, pulses present Neurological: non-focal, moves all 4 limbs awake and conversational. Memory lapses noted Dx/Plan (1) Acute encephalopathy Code(s): G93.40 - ENCEPHALOPATHY, UNSPECIFIED Status: Acute Comment: Due to medications psychotropic meds and respiratory acidosis. Mental status improved with flumazenil and narcan as well as BIPAP (2) CAD Status: Chronic Comment: Stent to LAD 06/26- on plavix, ASA and ranexa (3) COPD (chronic obstructive pulmonary disease) Status: Chronic Qualifiers: COPD type: unspecified COPD Qualified Code(s): J44.9 - Chronic obstructive pulmonary disease, unspecified Comment: Continues with symbicort BID- hasn't needed rescue inhaler- difficult to determine if SOB pulmonary, cardiac or both- will diurese and reevalaute next week. (4) Hypertension Code(s): I10 - ESSENTIAL (PRIMARY) HYPERTENSION Status: Chronic Qualifiers: Hypertension type: essential hypertension Qualified Code(s): I10 - Essential (primary) hypertension (5) Tobacco user Code(s): Z72.0 - TOBACCO USE Status: Chronic Comment: Planning to quit Nov 23- is going to ask PCP for chantix to assist (6) Dehydration Code(s): E86.0 - DEHYDRATION Status: Resolved Comment: Improved with IVF. [place] fluid intake advised (7) CKD (chronic kidney disease) stage 3, GFR 30-59 ml/min Code(s): N18.3 - CHRONIC KIDNEY DISEASE, STAGE 3 (MODERATE) Status: Acute (8) Type 2 diabetes mellitus Status: Acute - Plan Start oral intake. -: CPAP at nights. -: DC IVF to avoid fluid overload. [place] oral intake advised -: Consult pulmonary. -: Continue to hold psychotropic medications including opiods and benzodiazepi * .
[2019-01-23] MEDS: methylPREDNISolone Sod Succ/PF 125 MG/2 ML VIAL IVP SCH ×3 (13:27→23:57)
[2019-01-23] MEDS: Mometasone/Formoterol 120 PUFF INHALER INH SCH (18:47)
[2019-01-23] MEDS: Atorvastatin Calcium 20 MG TAB PO SCH (19:58)
[2019-01-23] MEDS: Aspirin 325 MG TAB PO SCH (19:58)
[2019-01-23] MEDS: Famotidine 20 MG TAB PO SCH (19:59)
[2019-01-23] MEDS: HumaLOG 300 UNITS/3 ML VIAL SC PRN (20:48)
[2019-01-23] MEDS: Famotidine/PF 20 mg/2ml Vial SLOW IVP SCH (22:57)
[2019-01-24 06:31] LABS: #Lymphocytes 0.5 thou/uL (1.20-3.40); #Monocytes 0.2 thou/uL (0.11-0.59); #Neutrophils 9.1 thou/uL (1.40-6.50); %Basophils 0.4 % (0.0-1.0); %Eosinophils 0.1 % (0.0-10.0); %Lymphocytes 4.7 % (21.0-51.0); %Monocytes 1.5 % (0.0-10.0); %Neutrophils 93.3 % (42.0-75.0); Hemoglobin 12.3 g/dL (12.0-16.0); Mean Corpuscular HGB CONC 32.4 g/dL (32.0-36.0); Mean Corpuscular Hemoglobin 27.6 pg (27.0-31.0); Mean Corpuscular Volume 85.3 fL (78.0-98.0); Mean Platelet Volume 8.2 fL (7.4-10.4); Platelet Count 333 thou/uL (130-400); RBC Distribution Width 12.8 % (11.5-14.5); Red Blood Cell (RBC) Count 4.45 mill/uL (4.20-5.40); White Blood Cell (WBC) Count 9.7 thou/uL (4.8-10.8)
[2019-01-24 06:51] LABS: Anion Gap 16 mmol/L (10-20); BUN (Urea Nitrogen) 34 mg/dL (9.8-20.1); Calc. Creatinine Clearance 46 mL/min (70-130); Calcium 10.1 mg/dL (7.8-10.44); Carbon Dioxide 27 mmol/L (23-31); Chloride 98 mmol/L (98-107); Estimated GFR-MDRD 36; Glucose 260 mg/dL (80-115); Potassium 4.1 mmol/L (3.5-5.1); Sodium 137 mmol/L (136-145)
[2019-01-24] MEDS: methylPREDNISolone Sod Succ/PF 125 MG/2 ML VIAL IVP SCH (07:53)
[2019-01-24] MEDS: Mometasone/Formoterol 120 PUFF INHALER INH SCH ×2 (08:22→19:56)
[2019-01-24] MEDS: Carvedilol 6.25 MG TAB PO SCH ×2 (09:23→20:31)
[2019-01-24] MEDS: Enoxaparin Sodium 40 MG/0.4 ML SYRINGE SC SCH (09:23)
[2019-01-24] MEDS: HumaLOG 300 UNITS/3 ML VIAL SC PRN ×3 (10:20→20:31)
--- NOTE | 2019-01-24 11:27 | PRG ---
DATE OF SERVICE: 01/24/2019 SUBJECTIVE: This morning, she is better. She states she wants to go home. OBJECTIVE: VITAL SIGNS: Blood pressure 120/51, saturations on 2 L, respiratory rate 18, temperature 98, and pulse 80. CHEST: Reveals decreased breath sounds. No wheezing. CARDIAC: Normal S1 and S2. No gallops. ABDOMEN: No masses. LABORATORY DATA: Creatinine 1.47. White count 9000. IMPRESSION: Diabetes, respiratory failure, encephalopathy, sleep apnea, morbid obesity. PLAN: She can be transferred out of the MICU. Continue neb treatments and steroids. We will follow. Job ID: [id number]
[2019-01-24] MEDS ORDERED: Dextrose 50% Abboject 50 ML SYRINGE SLOW IVP PRN (13:10)
[2019-01-24] MEDS ORDERED: Dextrose 5% in Water 1,000 ML IV PRN (13:10)
[2019-01-24] MEDS ORDERED: Amlodipine 5 MG TAB PO SCH (13:15)
--- NOTE | 2019-01-24 13:18 | PDOC.PN ---
- Subjective Encounter Start Date: 01/24/19 Encounter Start Time: 13:17 Subjective: Feeling better. -: More coherent and appropriate. -: Denied chest pain, fever, cough or SOB. - Objective Resuscitation Status - Order Detail: 01/22/19 15:01 Resuscitation Status Routine Resuscitation Status: FULL: Full Resuscitation Vital Signs & Weight: Vital Signs (12 hours) Temp Pulse Resp BP Pulse Ox 01/24/19 11:15 72 20 98 01/24/19 11:14 76 20 97 01/24/19 10:35 99.9 F H 01/24/19 09:23 122/51 L 01/24/19 08:22 99 01/24/19 08:20 78 19 99 01/24/19 07:09 98.6 F 01/24/19 04:00 98.2 F 01/24/19 02:36 69 19 96 Weight Weight 169 lb Most Recent Monitor Data Heart Rate from ECG 81 NIBP 150/75 NIBP BP-Mean 100 Respiration from ECG 18 SpO2 97 I&O: 01/23/19 01/24/19 01/25/19 06:59 06:59 06:59 Intake Total 980 1870 Output Total 800 Balance 980 1070 Result Diagrams: 01/24/19 05:51 01/24/19 05:51 Additional Labs: Accuchecks 01/24/19 01/24/19 01/23/19 10:20 06:02 20:26 POC Glucose 312 H 270 H 248 H 01/23/19 15:51 POC Glucose 140 H Phys Exam - Physical Examination Constitutional: NAD afebrile. HEENT: PERRLA dry oral mucosa Neck: no JVD, supple shock thick neck with excess subcuties Respiratory: no wheezing, no rales fair air entry with transmitted sound Cardiovascular: RRR Gastrointestinal: soft, non-tender, no distention, positive bowel sounds Musculoskeletal: no edema, pulses present Neurological: non-focal conscioos and alert, oriented x 3. some memory lapses noted. Moving all limbs. Ambulant with unsteady gait Deviation from normal: Dry skin Dx/Plan (1) Acute encephalopathy Code(s): G93.40 - ENCEPHALOPATHY, UNSPECIFIED Status: Acute Comment: Due to medications psychotropic meds and respiratory acidosis. Mental status improved with flumazenil and narcan as well as BIPAP (2) CAD Status: Chronic Comment: Stent to LAD 9/13- on plavix, ASA and ranexa (3) COPD (chronic obstructive pulmonary disease) Status: Chronic Qualifiers: COPD type: unspecified COPD Qualified Code(s): J44.9 - Chronic obstructive pulmonary disease, unspecified Comment: Continues with symbicort BID- hasn't needed rescue inhaler- difficult to determine if SOB pulmonary, cardiac or both- will diurese and reevalaute next week. (4) Hypertension Code(s): I10 - ESSENTIAL (PRIMARY) HYPERTENSION Status: Chronic Qualifiers: Hypertension type: essential hypertension Qualified Code(s): I10 - Essential (primary) hypertension (5) Tobacco user Code(s): Z72.0 - TOBACCO USE Status: Chronic Comment: Planning to quit Nov 23- is going to ask PCP for chantix to assist (6) Dehydration Code(s): E86.0 - DEHYDRATION Status: Resolved Comment: Improved with IVF. [place] fluid intake advised (7) CKD (chronic kidney disease) stage 3, GFR 30-59 ml/min Code(s): N18.3 - CHRONIC KIDNEY DISEASE, STAGE 3 (MODERATE) Status: Acute (8) Type 2 diabetes mellitus Status: Acute (9) AB (acute kidney injury) Code(s): N17.9 - ACUTE KIDNEY FAILURE, UNSPECIFIED Status: Acute (10) DANTE on CPAP Code(s): G47.33 - OBSTRUCTIVE SLEEP APNEA (ADULT) (PEDIATRIC); Z99.89 - DEPENDENCE ON OTHER ENABLING MACHINES AND DEVICES Status: Acute - Plan Restart IVF as patient is still dry. oral intake inadequate. Creat still up -: Continue bronchodilators and steroid. -: Start amlodipine to get adequate BP control. -: Wean off oxygen -: CPAP at night. Transfer to medical floor. * .
[2019-01-24] MEDS: Nicotine 14 MG PATCH TD SCH (14:11)
[2019-01-24] MEDS: Lactated Ringer's 1,000 ML IV SCH (15:37)
[2019-01-24] MEDS: Atorvastatin Calcium 20 MG TAB PO SCH (20:31)
[2019-01-24] MEDS: Famotidine 20 MG TAB PO SCH (20:31)
[2019-01-24] MEDS: Aspirin 325 MG TAB PO SCH (20:31)
[2019-01-25] MEDS: Lactated Ringer's 1,000 ML IV SCH ×3 (00:07→20:48)
[2019-01-25] MEDS: HumaLOG 300 UNITS/3 ML VIAL SC PRN ×4 (05:54→20:50)
[2019-01-25 06:30] LABS: #Monocytes 0.7 thou/uL (0.11-0.59); #Neutrophils 9.8 thou/uL (1.40-6.50); %Eosinophils 0.1 % (0.0-10.0); %Lymphocytes 8.7 % (21.0-51.0); %Monocytes 6.4 % (0.0-10.0); %Neutrophils 84.7 % (42.0-75.0); Hemoglobin 11.3 g/dL (12.0-16.0); Mean Corpuscular HGB CONC 31.8 g/dL (32.0-36.0); Mean Corpuscular Hemoglobin 27.4 pg (27.0-31.0); Mean Corpuscular Volume 86.2 fL (78.0-98.0); Mean Platelet Volume 7.4 fL (7.4-10.4); Platelet Count 347 thou/uL (130-400); RBC Distribution Width 12.9 % (11.5-14.5); Red Blood Cell (RBC) Count 4.13 mill/uL (4.20-5.40); White Blood Cell (WBC) Count 11.6 thou/uL (4.8-10.8)
[2019-01-25 06:45] LABS: Anion Gap 14 mmol/L (10-20); BUN (Urea Nitrogen) 34 mg/dL (9.8-20.1); Calc. Creatinine Clearance 48 mL/min (70-130); Calcium 9.8 mg/dL (7.8-10.44); Carbon Dioxide 25 mmol/L (23-31); Chloride 99 mmol/L (98-107); Estimated GFR-MDRD 37; Glucose 222 mg/dL (80-115); Sodium 134 mmol/L (136-145)
[2019-01-25] MEDS: Mometasone/Formoterol 120 PUFF INHALER INH SCH ×2 (07:15→19:28)
[2019-01-25] MEDS: Carvedilol 6.25 MG TAB PO SCH ×2 (07:45→20:49)
[2019-01-25] MEDS: Amlodipine 5 MG TAB PO SCH (07:45)
[2019-01-25] MEDS: Enoxaparin Sodium 40 MG/0.4 ML SYRINGE SC SCH (07:45)
[2019-01-25] MEDS ORDERED: ALPRAZolam 0.5 MG TAB PO PRN (07:55)
[2019-01-25] MEDS ORDERED: predniSONE 20 MG TAB PO SCH (08:00)
[2019-01-25 08:23] LABS: Hemoglobin A1c 9.3 % (4.0-6.0)
--- NOTE | 2019-01-25 11:12 | PDOC.PN ---
- Subjective Encounter Start Date: 01/25/19 Encounter Start Time: 11:10 Subjective: feeling better. More appropriate. -: memory is improving. - Objective Resuscitation Status - Order Detail: 01/22/19 15:01 Resuscitation Status Routine Resuscitation Status: FULL: Full Resuscitation Vital Signs & Weight: Vital Signs (12 hours) Temp Pulse Resp BP BP Pulse Ox 01/25/19 10:49 69 16 90 L 01/25/19 08:00 98.3 F 68 18 127/73 91 L 01/25/19 07:45 70 157/68 H 01/25/19 07:17 70 16 91 L 01/25/19 07:15 67 16 90 L 01/25/19 04:00 98.5 F 66 18 146/67 H 91 L 01/25/19 01:46 68 16 91 L 01/25/19 00:00 98.5 F 71 18 139/63 91 L Weight Weight 169 lb Most Recent Monitor Data Heart Rate from ECG 80 NIBP 131/72 NIBP BP-Mean 91 Respiration from ECG 24 SpO2 91 I&O: 01/24/19 01/25/19 01/26/19 06:59 06:59 06:59 Intake Total 1870 2910 800 Output Total 800 Balance 1070 2910 800 Result Diagrams: 01/25/19 06:04 01/25/19 06:04 Additional Labs: Accuchecks 01/25/19 01/24/19 01/24/19 05:07 20:21 16:12 POC Glucose 239 H 249 H 302 H Phys Exam - Physical Examination Constitutional: NAD HEENT: PERRLA Neck: no JVD, supple short thick neck with excess subcuties Respiratory: no wheezing, no rhonchi fair air entry with transmitted sound. Cardiovascular: RRR Gastrointestinal: soft, non-tender, no distention, positive bowel sounds Musculoskeletal: no edema, pulses present Neurological: non-focal, moves all 4 limbs memory lapses noted Psychiatric: A&O x 3 Deviation from normal: dry skin Dx/Plan (1) AB (acute kidney injury) Code(s): N17.9 - ACUTE KIDNEY FAILURE, UNSPECIFIED Status: Acute (2) Acute encephalopathy Code(s): G93.40 - ENCEPHALOPATHY, UNSPECIFIED Status: Acute Comment: Due to medications psychotropic meds and respiratory acidosis. ? serotonin syndrome. patient was taking tramadol, celexa and xanax Mental status improved with flumazenil and narcan as well as BIPAP (3) CAD Status: Chronic Comment: Stent to LAD 06/26- on plavix, ASA and ranexa (4) COPD (chronic obstructive pulmonary disease) Status: Chronic Qualifiers: COPD type: unspecified COPD Qualified Code(s): J44.9 - Chronic obstructive pulmonary disease, unspecified Comment: Continues with symbicort BID- hasn't needed rescue inhaler- difficult to determine if SOB pulmonary, cardiac or both- will diurese and reevalaute next week. (5) Hypertension Code(s): I10 - ESSENTIAL (PRIMARY) HYPERTENSION Status: Chronic Qualifiers: Hypertension type: essential hypertension Qualified Code(s): I10 - Essential (primary) hypertension (6) Tobacco user Code(s): Z72.0 - TOBACCO USE Status: Chronic Comment: Planning to quit Nov 23- is going to ask PCP for chantix to assist (7) Dehydration Code(s): E86.0 - DEHYDRATION Status: Resolved Comment: Improved with IVF. [place] fluid intake advised (8) CKD (chronic kidney disease) stage 3, GFR 30-59 ml/min Code(s): N18.3 - CHRONIC KIDNEY DISEASE, STAGE 3 (MODERATE) Status: Acute (9) Type 2 diabetes mellitus Status: Acute (10) DANTE on CPAP Code(s): G47.33 - OBSTRUCTIVE SLEEP APNEA (ADULT) (PEDIATRIC); Z99.89 - DEPENDENCE ON OTHER ENABLING MACHINES AND DEVICES Status: Acute - Plan Restart glipizide and xanax -: DC steroid. -: Continue IV fluid. -: Get all home medications for reconciliation. -: Wean off oxygen. Recheck renal function in the am * .
--- NOTE | 2019-01-25 11:52 | PRG ---
DATE OF SERVICE: 01/25/2019 SUBJECTIVE: Beth Babin is a 63-year-old obese female. This morning, she says she is feeling better. No longer confused. No longer hypoxic. OBJECTIVE: VITAL SIGNS: Saturations are 90% on room air, pulse 60, temperature 98, blood pressure 127/70. CHEST: Decreased breath sounds. No wheezing. CARDIAC: Normal S1 and S2. No gallops. ABDOMEN: No masses. LABORATORY DATA: Creatinine 1.42. White count is normal. IMPRESSION: Chronic obstructive pulmonary disease exacerbation, bronchitis, hypertension. Ongoing tobacco abuse. Appears to be stable. Enough to be discharged home. Follow up with primary care physician. Job ID: [id number]
[2019-01-25] MEDS: Nicotine 14 MG PATCH TD SCH (13:29)
[2019-01-25] MEDS: Atorvastatin Calcium 20 MG TAB PO SCH (20:48)
[2019-01-25] MEDS: Aspirin 325 MG TAB PO SCH (20:48)
[2019-01-25] MEDS: Famotidine 20 MG TAB PO SCH (20:49)
[2019-01-26] MEDS: Lactated Ringer's 1,000 ML IV SCH (05:36)
[2019-01-26] MEDS: HumaLOG 300 UNITS/3 ML VIAL SC PRN (05:37)
[2019-01-26] MEDS: Mometasone/Formoterol 120 PUFF INHALER INH SCH (06:52)
[2019-01-26] MEDS ORDERED: glipiZIDE 10 MG TAB PO SCH ×2 (08:00→21:00)
[2019-01-26] MEDS: Amlodipine 5 MG TAB PO SCH (08:34)
[2019-01-26] MEDS: Carvedilol 6.25 MG TAB PO SCH (08:34)
[2019-01-26] MEDS: Enoxaparin Sodium 40 MG/0.4 ML SYRINGE SC SCH (08:35)
[2019-01-26 08:44] LABS: Anion Gap 12 mmol/L (10-20); BUN (Urea Nitrogen) 26 mg/dL (9.8-20.1); Calc. Creatinine Clearance 53 mL/min (70-130); Calcium 9.6 mg/dL (7.8-10.44); Carbon Dioxide 28 mmol/L (23-31); Chloride 101 mmol/L (98-107); Estimated GFR-MDRD 41; Glucose 140 mg/dL (80-115); Potassium 3.4 mmol/L (3.5-5.1); Sodium 138 mmol/L (136-145)
--- NOTE | 2019-01-26 10:25 | CON ---
DATE OF CONSULTATION: HISTORY OF PRESENT ILLNESS: We were asked to see the patient for a fracture in her left wrist. The patient was initially seen on 01/19. She lives at [facility]. Her puppies got tangled around her legs and she fell. She was brought to the ER where she was splinted and given a tramadol. While she awoke at 3 in the morning, had some severe pain and went to [email or web address]. She remembers taking 1 tablet, maybe 2 of the Ultram, and nothing after that. When they found the patient, there was apparently 10 pills missing which she cannot understand. She has no aspirations of harming herself whatsoever per our discussion. As for her wrist, it is doing okay in the splint. She was quite concerned. She was supposed to see and follow up probably with our clinic, but I am here to talk to her about it now. I have given Dr. Conteh' information on the patient and she is yet to eat this morning. No numbness and tingling in her left hand and no injury to the head. PAST MEDICAL HISTORY: Positive for; 1. Coronary artery disease with a stent. 2. Hypertension. 3. Hyperlipidemia. 4. Diabetes. 5. COPD. 6. Kidney disease. 7. Depression. 8. Anxiety. PAST SURGICAL HISTORY: 1. Appendectomy. 2. Cholecystectomy. 3. Cardiac stenting. FAMILY HISTORY: Noncontributory for this visit in regard to her wrist. SOCIAL HISTORY: She lives at [facility]. Continues to smoke. No alcohol or illicit drug products. ALLERGIES: 1. CODEINE. 2. IODINE. 3. PENICILLIN. HOME MEDICATIONS: 1. Xanax. 2. Aspirin. 3. Lipitor. 4. Carvedilol. 5. Celexa. 6. Glipizide. 7. Nortriptyline. 8. Spironolactone. 9. Anoro Ellipta. 10. Tramadol. REVIEW OF SYSTEMS: Some shortness of breath, has a current cough. No chest pain. No bowel or bladder issues. The wrist is sore on the left, but she is moving it well in the splint. Rest of review of systems is negative. PHYSICAL EXAMINATION: GENERAL: Well nourished, well developed female, resting in bed in room 4437, little short of breath. She just got out of the bathroom, but speech clear, fluent, oriented x3. HEENT: Normal exam. Face symmetric. Tongue midline. Head is normocephalic. NECK: Supple. Trachea midline. RESPIRATORY: She is breathing rather quickly coming out of the bathroom and has a cough, otherwise talking well and in no acute respiratory distress. EXTREMITIES: Upper extremities; equal size, shape, symmetry. Normal bulk and tone with the exception of the left upper extremity. The digits are a little swollen, but they are moving well and sensations are intact. Gait stable as leaving the bathroom. ASSESSMENT: 1. Multiple health issues. 2. Left wrist fracture. PLAN: I spoke with Dr. Conteh. I will have him look at the x-rays. She is currently in a splint. She would prefer not to have surgery, but if needed, she would like to have it on this visit. We will discuss that with Dr. Conteh. She has currently not eaten or drunk very much this morning. I did go over surgical options, plating with screws, discussed risks and benefits of doing that also with the respiratory condition. She understands risks and benefits and would be amenable to go forth with surgery if it is necessary. Her questions and concerns have been addressed and answered. Job ID: [id number]
--- NOTE | 2019-01-26 11:23 | PDOC.PN ---
- Subjective Encounter Start Date: 01/26/19 Encounter Start Time: 11:22 Subjective: Feeling better. NO , chest pain or fever. - Objective Resuscitation Status - Order Detail: 01/22/19 15:01 Resuscitation Status Routine Resuscitation Status: FULL: Full Resuscitation Vital Signs & Weight: Vital Signs (12 hours) Temp Pulse Resp BP BP Pulse Ox 01/26/19 08:34 60 156/69 H 01/26/19 08:30 94 L 01/26/19 08:00 98.9 F 60 20 156/69 H 94 L 01/26/19 06:52 68 16 96 01/26/19 06:50 68 18 96 01/26/19 02:27 95 01/26/19 02:21 68 12 95 Weight Weight 169 lb Most Recent Monitor Data Heart Rate from ECG 80 NIBP 131/72 NIBP BP-Mean 91 Respiration from ECG 24 SpO2 91 I&O: 01/25/19 01/26/19 01/27/19 06:59 06:59 06:59 Intake Total 2910 6460 Balance 2910 6460 Result Diagrams: 01/25/19 06:04 01/26/19 08:11 Additional Labs: Accuchecks 01/26/19 01/25/19 01/25/19 05:19 20:10 16:03 POC Glucose 201 H 364 H 368 H 01/25/19 12:32 POC Glucose 283 H Phys Exam - Physical Examination Constitutional: NAD HEENT: PERRLA, moist MMs Neck: supple Respiratory: no wheezing, no rales, no rhonchi, clear to auscultation bilateral Cardiovascular: RRR, no significant murmur Gastrointestinal: soft, non-tender, no distention, positive bowel sounds Musculoskeletal: no edema, pulses present Left upper extremity in a splint Neurological: non-focal, moves all 4 limbs Psychiatric: A&O x 3 Dx/Plan (1) AB (acute kidney injury) Code(s): N17.9 - ACUTE KIDNEY FAILURE, UNSPECIFIED Status: Acute Comment: Improving with IVF (2) Acute encephalopathy Code(s): G93.40 - ENCEPHALOPATHY, UNSPECIFIED Status: Acute Comment: Due to medications psychotropic meds and respiratory acidosis. ? serotonin syndrome. patient was taking tramadol, celexa and xanax Mental status improved with flumazenil and narcan as well as BIPAP (3) CAD Status: Chronic Comment: Stent to LAD 06/26- on plavix, ASA and ranexa (4) COPD (chronic obstructive pulmonary disease) Status: Chronic Qualifiers: COPD type: unspecified COPD Qualified Code(s): J44.9 - Chronic obstructive pulmonary disease, unspecified Comment: Continues with symbicort BID- hasn't needed rescue inhaler- difficult to determine if SOB pulmonary, cardiac or both- will diurese and reevalaute next week. (5) Hypertension Code(s): I10 - ESSENTIAL (PRIMARY) HYPERTENSION Status: Chronic Qualifiers: Hypertension type: essential hypertension Qualified Code(s): I10 - Essential (primary) hypertension (6) Tobacco user Code(s): Z72.0 - TOBACCO USE Status: Chronic Comment: Planning to quit Nov 23- is going to ask PCP for chantix to assist (7) Dehydration Code(s): E86.0 - DEHYDRATION Status: Resolved Comment: Improved with IVF. [place] fluid intake advised (8) CKD (chronic kidney disease) stage 3, GFR 30-59 ml/min Code(s): N18.3 - CHRONIC KIDNEY DISEASE, STAGE 3 (MODERATE) Status: Acute (9) Type 2 diabetes mellitus Status: Acute (10) DANTE on CPAP Code(s): G47.33 - OBSTRUCTIVE SLEEP APNEA (ADULT) (PEDIATRIC); Z99.89 - DEPENDENCE ON OTHER ENABLING MACHINES AND DEVICES Status: Acute (11) Left wrist fracture Code(s): S62.102A - FRACTURE OF UNSP CARPAL BONE, LEFT WRIST, INIT FOR CLOS FX Status: Acute - Plan Increase glipizide to 10 bid. -: Awaiting ORIF of left wrist by Orth. -: Increase amlodipine to 10 mg daily. -: BMP in the am. -: Continue IVF. * .
[2019-01-26] MEDS ORDERED: Lactated Ringer's 1,000 ML IV SCH (11:30)
[2019-01-26] MEDS ORDERED: Amlodipine 5 MG TAB PO SCH (11:30)
[2019-01-26] MEDS: Nicotine 14 MG PATCH TD SCH (11:51)
--- NOTE | 2019-01-26 12:52 | RAD ---
2 views left wrist. HISTORY: Follow-up x-ray after left wrist fracture. AP and lateral views left wrist demonstrates again a displaced distal radial fracture. There is some impaction involving the distal radial fracture. Ulnar styloid fracture is again seen. No significant interval changes seen since the previous compari son exam from one week earlier. IMPRESSION: post casting radiograph distal left radial and ulnar fractures.
--- NOTE | 2019-01-26 15:23 | DIS ---
DATE OF ADMISSION: 01/22/2019 DATE OF DISCHARGE: 01/26/2019 DISCHARGE DIAGNOSES: 1. Acute toxic and metabolic encephalopathy. 2. Acute respiratory failure with hypoxia and hypercarbia. 3. Medication-induced central nervous system depression. 4. Acute kidney injury. 5. Chronic kidney disease stage 3. 6. Coronary artery disease, status post stent placement. 7. Hypertension. 8. Tobacco abuse disorder. 9. Dehydration. 10. Type 2 diabetes mellitus, uncontrolled. 11. Obstructive sleep apnea, on CPAP. 12. Left wrist fracture. 13. Possible serotonin syndrome. CONSULTS: 1. Pulmonary and Critical Care. 2. Orthopedic Surgery. HOSPITAL COURSE: A 63-year-old female with past medical history significant for coronary artery disease, status post stent placement; hypertension; type 2 diabetes; COPD; and obstructive sleep apnea, on CPAP, who was brought in due to decreased responsiveness associated with hypoxia. The patient who recently was started on tramadol after left wrist fracture was found by a friend to be unresponsive, hence EMS were called. The patient was noticed to have SpO2 in 70s and could not provide any history. Mental status and awareness improved following Narcan, but the patient soon relapsed into unresponsiveness. She was started on BiPAP with improvement of oxygenation. The patient's mental status improved further following second dose of Narcan and a dose of flumazenil. The patient, however, has memory lapses and was unable to provide any history. Impression of acute encephalopathy from medications as well as hypercarbia and hypoxia was made and the patient was admitted to [facility] and treated with noninvasive respiratory support as well as IV fluids, bronchodilators while all psychotropic medications were held. The patient also was found to have elevated creatinine and was felt to be clinically dry, hence was started on IV fluid therapy with improvement in creatinine. Further re-evaluation showed the patient was on Celexa and also took Xanax in addition to tramadol. There was a concern for serotonin syndrome and the patient was monitored closely with discontinuation of psychotropic medication with improvement in mental status. Orthopedic Surgery consult was obtained due to distal left forearm fracture, and repeat chest x-ray was obtained and it was decided that conservative management will be continued. The patient is to follow up with Orthopedic Surgery in 1 week. She was also noted to have physical deconditioning associated with unsteady gait and was treated by Physical Therapy. She improved and was subsequently discharged home with home therapy. CONDITION AT DISCHARGE: Improved. DISCHARGE MEDICATIONS: 1. Xanax 0.5 mg p.o. b.i.d. p.r.n. for anxiety. 2. Amlodipine 10 mg p.o. daily. 3. Aspirin 81 mg p.o. daily. 4. Carvedilol 12.5 mg p.o. b.i.d. 5. Celexa 20 mg p.o. at bedtime. 6. Glipizide 10 mg p.o. b.i.d. 7. Vascepa 1 g p.o. daily. 8. Omeprazole 40 mg p.o. daily. 9. Spironolactone 25 mg p.o. daily. 10. Anoro one puff p.o. daily. 11. Nicotine patch 40 mg transdermal daily. 12. Tylenol 650 mg q.4 p.r.n. 13. Lipitor 20 mg daily at bedtime. 14. Metformin 500 mg p.o. b.i.d. TIME SPENT: This discharge took about 37 minutes. Job ID: [id number]
[2019-01-26 15:39] VITALS: TEMP 98
[2019-01-26 15:55] VITALS: BP 160/66
[2019-01-27] MEDS ORDERED: Amlodipine 10 MG TAB PO SCH (09:00)
== END 2019-01-26 16:20 | disposition home or self-care (01) | DRG 91 ==
LOC: ERS 10:44 → IMCU/EMU 18:04 → T4-B 01-24 15:04
PROVIDERS: ADMIT Internal Medicine Nephrology; ATTEND Internal Medicine Nephrology
PROC: 5A09357 Assistance with Respiratory Ventilation, Less than 24 Consecutive Hours, Continuous Positive Airway Pressure (ICD-10-PCS; principal; 2019-01-23)
DX: G92 Toxic encephalopathy (principal); J96.01 Acute respiratory failure with hypoxia; J96.02 Acute respiratory failure with hypercapnia; S52.502A Unspecified fracture of the lower end of left radius, initial encounter for closed fracture; S52.612A Displaced fracture of left ulna styloid process, initial encounter for closed fracture; N17.9 Acute kidney failure, unspecified; J44.1 Chronic obstructive pulmonary disease with (acute) exacerbation; T40.4X5A Adverse effect of other synthetic narcotics, initial encounter; T42.4X5A Adverse effect of benzodiazepines, initial encounter; T43.015A Adverse effect of tricyclic antidepressants, initial encounter; F41.9 Anxiety disorder, unspecified; F32.9 Major depressive disorder, single episode, unspecified; I25.10 Atherosclerotic heart disease of native coronary artery without angina pectoris; I12.9 Hypertensive chronic kidney disease with stage 1 through stage 4 chronic kidney disease, or unspecified chronic kidney disease; E11.22 Type 2 diabetes mellitus with diabetic chronic kidney disease; N18.3 Chronic kidney disease, stage 3 (moderate); E86.0 Dehydration; E11.65 Type 2 diabetes mellitus with hyperglycemia; G47.33 Obstructive sleep apnea (adult) (pediatric); F17.210 Nicotine dependence, cigarettes, uncomplicated; E66.01 Morbid (severe) obesity due to excess calories; Z68.29 Body mass index [BMI] 29.0-29.9, adult; Z99.89 Dependence on other enabling machines and devices; Z88.5 Allergy status to narcotic agent; Z88.0 Allergy status to penicillin; Z79.82 Long term (current) use of aspirin; Z79.899 Other long term (current) drug therapy; Z95.5 Presence of coronary angioplasty implant and graft; W01.0XXA Fall on same level from slipping, tripping and stumbling without subsequent striking against object, initial encounter
CPT/HCPCS: 25600; 36415; 36416; 51701; 70450; 71045; 80048; 80053; 80306; 80307; 81003; 82805; 83036; 83690; 84443; 84484; 85025; 90471; 90670; 93005; 94640; 94660; 94664; 96374; 96375; 96376; A4353; G0009; J1650; J2310; J2930; J7512; J7620

== ENCOUNTER 2019-11-29 17:01 | Inpatient (IN) | payer MEDICARE ==
[2019-11-29 17:30] LABS: #Basophils 0.1 thou/uL (0.0-0.2); #Eosinphils 0.1 thou/uL (0.0-0.7); #Lymphocytes 1.1 thou/uL (1.20-3.40); #Monocytes 0.6 thou/uL (0.11-0.59); #Neutrophils 7.1 thou/uL (1.40-6.50); %Basophils 1.1 % (0.0-1.0); %Eosinophils 1.5 % (0.0-10.0); %Lymphocytes 12.5 % (21.0-51.0); %Monocytes 6.6 % (0.0-10.0); %Neutrophils 78.3 % (42.0-75.0); Hemoglobin 11.8 g/dL (12.0-16.0); Mean Corpuscular HGB CONC 32.8 g/dL (32.0-36.0); Mean Corpuscular Hemoglobin 29.4 pg (27.0-31.0); Mean Corpuscular Volume 89.5 fL (78.0-98.0); Platelet Count 340 thou/uL (130-400); RBC Distribution Width 13.9 % (11.5-14.5); Red Blood Cell (RBC) Count 4.03 mill/uL (4.20-5.40); White Blood Cell (WBC) Count 9.1 thou/uL (4.8-10.8)
[2019-11-29 17:49] LABS: ALT (SGPT) 78 U/L (8-55); AST (SGOT) 44 U/L (5-34); Alkaline Phosphatase 236 U/L (40-110); Anion Gap 12 mmol/L (10-20); BUN (Urea Nitrogen) 15 mg/dL (9.8-20.1); Bilirubin, Total 0.6 mg/dL (0.2-1.2); CK (CPK) 52 U/L (29-168); Calc. Creatinine Clearance 0 mL/min (70-130); Calcium 9.6 mg/dL (7.8-10.44); Carbon Dioxide 32 mmol/L (23-31); Chloride 99 mmol/L (98-107); Estimated GFR-MDRD 36; Globulin 3.1 g/dL (2.4-3.5); Glucose 193 mg/dL (80-115); Protein, Total 7.1 g/dL (6.0-8.3); Sodium 139 mmol/L (136-145)
--- NOTE | 2019-11-29 17:58 | RAD ---
Exam: Chest one view HISTORY:Facial trauma. Comparison: 10/24/2018 FINDINGS: Cardiac silhouette:Enlarged Aorta: Atherosclerosis Pulmonary vessels: Normal Costophrenic angles: Clear LUNGS: No masses or consolidation. Chronic changes in the right lung base. Mild hyperinflation. Pneumothorax: None Osseous abnormalities: None IMPRESSION: 1. Atherosclerosis. 2. Cardiomegaly. No congestive heart failure.
--- NOTE | 2019-11-29 18:29 | CT ---
Exam: Head CT without contrast HISTORY: Injury. Altered mental status. COMPARISON: 01/22/2019 FINDINGS: Hemorrhage: No intraparenchymal hemorrhage or extra-axial hematoma. Brain parenchyma: Cortical curry-white matter differentiation is preserved. No mass effect or midline shift. Basilar cisterns are patent.Minimal chronic small vessel ischemic changes of the white matter Ventricular system: Ventricles and sulci are patent and symmetric. Calvarium: Intact. Sinuses and mastoid air cells: Adequate aeration. IMPRESSION: No acute intracranial process.
--- NOTE | 2019-11-29 18:36 | CT ---
Exam: CT cervical spine without contrast HISTORY: Trauma. Pain. COMPARISON: None FINDINGS: No craniocervical dissociation. Appropriate alignment of the lateral masses of C1 and C2. Intact odon toid process Appropriate alignment of the facets. Straightening of normal cervical lordosis may be due to patient position, muscle spasm or cervical co llar. Soft tissue neck structures: No mass, lymphadenopathy or hematoma. No prevertebral soft tissue swelli ng. Upper mediastinum and lung apices: Small left-sided pleural effusion with adjacent lung parenchymal o pacification likely representing atelectatic change Central spinal canal: Neural foramina and central spinal canal are patent. Evaluation is limited by t echnique Vertebral bodies: Cervical spine vertebral body height is maintained. No fracture. IMPRESSION: 1. No fracture. 2. Straightening of cervical lordosis which may be due to patient position, muscle spasm or cervical collar. Cervical spine MRI if there is concern for ligamentous injury. 3. Small left apical pleural effusion. Minimal adjacent parenchymal change
--- NOTE | 2019-11-29 19:19 | CT ---
Exam: Chest CT without contrast Abdomen CT without contrast Pelvic CT without contrast Limited CT of the thoracic and lumbar spine HISTORY: Patient fell 3 days ago. Pain. Comparison: None FINDINGS: Chest CT: Limited evaluation of the mediastinum by the absence of IV contrast. No mass, lymphadenopathy or mitzi ankit. HEART: Minimal pericardial fluid. No evidence of cardiomegaly. There are coronary calcifications. Aorta: Atherosclerosis of a nonaneurysmal aorta. Lower neck and axilla: No evidence of lymphadenopathy. The thyroid gland has a slightly heterogeneous appearance. Nonemergent thyroid ultrasound. Trachea and central bronchi are patent. Pleural fusions are noted bilaterally. LUNGS: Dependent atelectatic changes adjacent to the pleural effusions. Superimposed aspiration or pn eumonia cannot be excluded. Mild emphysematous changes predominantly in the upper lobes. Patchy linear opacities likely represent scar or atelectasis. Pneumothorax: None Nodules: 0.3 cm solid nodule in the periphery of the left upper lobe. Abdomen CT: Gallbladder is surgically absent. Limited evaluation of the solid organs by the absence of IV contrast. Grossly no solid organ abnormal ity No gastrohepatic, retrocrural or periportal lymphadenopathy. No mesenteric mass, lymphadenopathy, free air or free fluid. Bilaterally no evidence of obstructive uropathy. Nonobstructing calcification in the upper pole the l eft kidney. Limited evaluation of the alimentary canal by the absence of oral contrast. Gastric mucosal prominenc e is nonspecific. Multiple normal caliber small bowel loops. Ileocecal junction is unremarkable. Scattered fecal material in a nondistended, nondilated colon. No mucosal abnormality. Occasional dive rticulum. No diverticulitis. Pelvic CT: No mass, lymphadenopathy, free air or free fluid. Unremarkable urinary bladder. Unremarkable uterus and adnexal structures Osseous structures: Visualized sternum, clavicles, scapula and humerus are unremarkable. There does n ot appear to be a left or right rib fracture. Old posterior left rib fractures are noted. Bony pelvis is intact. No evidence of a pelvic fracture. Intact sacrum. Sacral ala are preserved. Bilatera l obturator rings are intact. No evidence of presacral fat stranding. Limited CT of the thoracic and lumbar spine: Vertebral body heights are maintained. No fracture or ma lalignment. IMPRESSION: 1. No posttraumatic change in the chest, abdomen or pelvis. 2. Additional findings as above. Transcribed Date/Time: 11/29/2019 8:28 PM
[2019-11-29] MEDS ORDERED: Azithromycin 500 MG VIAL ONE (21:02)
[2019-11-29] MEDS ORDERED: cefTRIAXone\\ROCEPHIN 2 GM VIAL ONE (21:02)
[2019-11-29 22:47] LABS: Actual Bicarbonate (HCO3a) 33.8 mEq/L (22-28); Analyzer IN Cardio ER; CO2 Tension 59.3 mmHg (35.0-45.0); Calcium, Ionized 1.19 mmol/L (1.12-1.30); Carboxyhemoglobin (COHb) 1.7 gm% (0.0-3.0); Hemoglobin (Hb) 11.6 g/dL (12.0-16.0); Potassium - ABG Lab 3.79 mmol/L (3.70-5.30); pH, Arterial 7.37 (7.35-7.45)
[2019-11-29 22:51] LABS: ALV-art Gradient 94.935 (0-20); O2 Tension (PaO2) 59.1 mmHg (> 80.0); Puncture Site LBA
[2019-11-30 01:04] LABS: Troponin I Less than 0.010 ng/mL (< 0.028)
[2019-11-30 03:22] LABS: Troponin I 0.013 ng/mL (< 0.028)
[2019-11-30] MEDS ORDERED: Acetaminophen 325 MG/10.15 ML UDCUP PO PRN (04:18)
[2019-11-30] MEDS ORDERED: SYSTANE 3.5 GM TUBE EA EYE PRN (04:18)
[2019-11-30] MEDS ORDERED: Dextrose 5% in Water 1,000 ML IV PRN (04:22)
[2019-11-30] MEDS ORDERED: Dextrose 50% Abboject 50 ML SYRINGE SLOW IVP PRN (04:22)
[2019-11-30] MEDS ORDERED: Calcium Carbonate 500 MG ChewTAB PO PRN (04:22)
[2019-11-30] MEDS ORDERED: Acetaminophen 325 MG TAB PO PRN (04:22)
[2019-11-30] MEDS ORDERED: Bisacodyl 10 MG SUPP PR PRN (04:22)
[2019-11-30] MEDS ORDERED: Sodium Chloride 0.9% 1,000 ML IV SCH (04:30)
--- NOTE | 2019-11-30 04:41 | HP ---
The patient was seen and examined on November 29, 2019. PRIMARY CARE PHYSICIAN: Dr. Reyes. CHIEF COMPLAINT: Altered mentation. HISTORY OF PRESENT ILLNESS: The patient is a 64-year-old female with coronary artery disease; CKD; obstructive sleep apnea, on CPAP; hypertension; and diabetes mellitus, type 2, presented to the emergency room with above complaints. History obtained from the ER chart and partially from the patient. She is currently on noninvasive positive-pressure ventilation. Over the last 4 to 5 days, the patient less responsive. She is unable to stay awake. Due to this, the patient fell yesterday on her face. She also noticed some left ankle swelling. She has been having diarrhea for last 3 days along with right-sided abdominal discomfort. She has been feeling weak overall. She denies any chest pain, palpitations, double vision, blurring of vision, facial asymmetry, or weakness or numbness of any of her extremities. In the emergency room, her initial vital signs showed temperature of 100 with respirations 19, pulse rate of 71 with a blood pressure 136/59 with O2 saturation of 84% on room air. Her ABG showed pH of 7.37 with pCO2 of 59.3, PO2 of 59.1 with bicarbonate of 33.8 on 3 L nasal cannula. She was started on noninvasive positive-pressure ventilation. PAST MEDICAL HISTORY: 1. Diabetes mellitus, type 2. 2. CKD, stage 3. 3. Coronary artery disease, status post stent placement. 4. Hypertension. 5. History of tobacco abuse. 6. Obstructive sleep apnea, on CPAP. 7. Anxiety. 8. Depression. 9. COPD. PAST SURGICAL HISTORY: 1. Appendectomy. 2. Cholecystectomy. 3. Coronary stent placement. ALLERGIES: THE PATIENT IS ALLERGIC TO CODEINE, IODINE, AND PENICILLIN. CURRENT HOME MEDICATIONS: The patient is unable to recall any of her home medications. We will try to obtain from the family when they arrive. SOCIAL HISTORY: The patient currently lives at home alone. She continues to smoke less than half pack a day. She denies any alcohol or drug use. She is full code and makes her own decision with the help of her family. FAMILY HISTORY: Positive for heart disease and diabetes. REVIEW OF SYSTEMS: Limited due to current mentation. PHYSICAL EXAMINATION: VITAL SIGNS: As discussed above. GENERAL: A 64-year-old female with altered mentation. She is currently on noninvasive positive-pressure ventilation. HEENT: Head; there is ecchymosis around the right eye. The head is otherwise atraumatic. No oral lesion. NECK: Supple. No JVD appreciated. No carotid bruit. LUNGS: Showed diminished air entry at bilateral bases with scattered rhonchi. There were a few rales as well. No wheezing. No significant accessory muscle use. HEART: S1, S2 present. Regular. No rubs or gallops. ABDOMEN: Soft. There is tenderness over the right upper and lower quadrant. No rebound or guarding. No costovertebral angle tenderness. EXTREMITIES: There is 1+ edema in bilateral lower extremities. No calf tenderness. SKIN: Warm and dry. LYMPH NODES: No palpable lymph nodes in the neck. PERIPHERAL VASCULAR: Radial pulses palpable bilaterally. MUSCULOSKELETAL: No joint swelling tenderness. SKIN: Warm and dry. LABORATORY FINDINGS: ABGs as discussed above. CBC showed WBC 9.1 with hemoglobin 11.8, hematocrit 36.1, and platelets 340. Chemistry showed sodium 139, potassium 4, chloride 99, bicarb 32, BUN 15, and creatinine 1.45. Troponins have been negative. Lactic acid 0.8. CT scan of the brain by my review was negative for acute findings. Chest x-ray by my review was negative for infiltrate or edema. Cervical spine CT was negative for acute fractures or dislocation. CT scan of the chest, abdomen, and pelvis without contrast showed possible aspiration pneumonia with the left upper lobe lung nodule. EKG by my review showed sinus rhythm with left bundle-branch block. IMPRESSION: 1. Toxic metabolic encephalopathy. 2. Acute hypoxic and hypercapnic respiratory failure. 3. Aspiration pneumonia. 4. Chronic obstructive pulmonary disease with chronic obstructive pulmonary disease exacerbation. 5. Coronary artery disease. 6. Obstructive sleep apnea. 7. Diabetes mellitus, type 2. 8. Hypertension. 9. Ongoing tobacco abuse. 10. Chronic diastolic heart failure. 11. Chronic left bundle-branch block. PLAN: 1. The patient will be monitored in the intermediate care unit. The patient normally follows Dr. Henderson. We will continue nebulizer treatment. Continue noninvasive positive-pressure ventilation. IV meropenem for aspiration pneumonia. We will start her on meropenem due to penicillin allergy. We will verify home medications. We will start her on sliding scale. Monitor labs on a daily basis. Consult Pulmonary, Dr. Henderson. 2. Frequent neuro checks. Hold psychotropic medications. We will discuss the plan of care with the family when they arrive. Job ID: [id number]
[2019-11-30 04:56] LABS: #Eosinphils 0.2 thou/uL (0.0-0.7); #Lymphocytes 1.2 thou/uL (1.20-3.40); #Monocytes 0.8 thou/uL (0.11-0.59); %Basophils 0.5 % (0.0-1.0); %Eosinophils 2.6 % (0.0-10.0); %Lymphocytes 14.9 % (21.0-51.0); %Monocytes 9.2 % (0.0-10.0); %Neutrophils 72.8 % (42.0-75.0); Hemoglobin 10.6 g/dL (12.0-16.0); Mean Corpuscular HGB CONC 32.2 g/dL (32.0-36.0); Mean Corpuscular Hemoglobin 28.6 pg (27.0-31.0); Mean Corpuscular Volume 88.9 fL (78.0-98.0); Platelet Count 283 thou/uL (130-400); RBC Distribution Width 13.9 % (11.5-14.5); Red Blood Cell (RBC) Count 3.71 mill/uL (4.20-5.40); White Blood Cell (WBC) Count 8.2 thou/uL (4.8-10.8)
[2019-11-30 05:04] LABS: Phosphorus 2.7 mg/dL (2.3-4.7)
[2019-11-30 05:15] VITALS: BMI 29.2
[2019-11-30 05:44] LABS: Chloride 102 mmol/L (98-107); Potassium 3.9 mmol/L (3.5-5.1); Sodium 140 mmol/L (136-145)
[2019-11-30 05:45] LABS: Calcium 9.2 mg/dL (7.8-10.44); Glucose 117 mg/dL (80-115)
[2019-11-30 05:47] LABS: Carbon Dioxide 30 mmol/L (23-31)
[2019-11-30 05:49] LABS: BUN (Urea Nitrogen) 12 mg/dL (9.8-20.1); Calc. Creatinine Clearance 57 mL/min (70-130); Estimated GFR-MDRD 45
[2019-11-30 05:51] LABS: Magnesium 1.6 mg/dL (1.6-2.6)
[2019-11-30 06:03] LABS: Anion Gap 12 mmol/L (10-20)
[2019-11-30] MEDS: MEROPENEM 1 GM/50 ML 1 GM in Premix Bag 1 BAG IVPB SCH ×3 (06:48→23:15)
[2019-11-30] MEDS: Budesonide 0.5 MG/2 ML NEB INH SCH ×2 (08:25→19:02)
[2019-11-30 08:57] LABS: Actual Bicarbonate (HCO3a) 34.1 mEq/L (22-28); Analyzer IN Cardio ER; CO2 Tension 55.1 mmHg (35.0-45.0); Calcium, Ionized 1.22 mmol/L (1.12-1.30); Carboxyhemoglobin (COHb) 0.6 gm% (0.0-3.0); Hemoglobin (Hb) 11.2 g/dL (12.0-16.0); pH, Arterial 7.41 (7.35-7.45)
--- NOTE | 2019-11-30 08:58 | RAD ---
PORTABLE CHEST: HISTORY: Shortness of breath. FINDINGS: Lungs appear clear. No infiltrate or vascular congestion. Heart is mildly prominent. IMPRESSION: No acute finding. POS: C
[2019-11-30 08:59] LABS: O2 Tension (PaO2) 55.8 mmHg (> 80.0)
[2019-11-30] MEDS ORDERED: Aspirin Chewable 81 MG TAB ONE (10:06)
[2019-11-30] MEDS ORDERED: Famotidine 20 MG TAB ONE (10:06)
[2019-11-30] MEDS: Famotidine 20 MG TAB PO SCH (10:09)
[2019-11-30] MEDS: Aspirin 81 mg Enteric Coated Tablet PO SCH (10:09)
[2019-11-30] MEDS: Saccharomyces boulardii 250 MG CAP PO SCH (10:10)
[2019-11-30] MEDS: Senokot S 8.6-50 MG TAB PO SCH ×2 (10:10→20:40)
[2019-11-30] MEDS: Famotidine/PF 20 mg/2ml Vial SLOW IVP SCH (10:11)
--- NOTE | 2019-11-30 10:19 | CON ---
DATE OF CONSULTATION: 11/30/2019 REASON FOR CONSULTATION: COPD with exacerbation. HISTORY OF PRESENT ILLNESS: The patient is a 64-year-old, who came to the hospital with fairly acute shortness of breath yesterday, that had been building over 3 days prior to admission. She was briefly on BiPAP, that is off this morning. She feels better and is back to her baseline. She denies cough, fever, chills or chest pain. PAST MEDICAL HISTORY: 1. COPD. 2. Tobacco abuse. 3. DANTE, not wearing CPAP or BiPAP at home. 4. Diabetes mellitus type 2. 5. Chronic kidney disease. 6. Coronary artery disease. 7. Anxiety. 8. Depression. PAST SURGICAL HISTORY: 1. Coronary stent placement. 2. Cholecystectomy. 3. Appendectomy. ALLERGIES: CODEINE, IODINE, AND PENICILLIN. SOCIAL HISTORY: Smokes half pack per day. Does not consume alcohol. Does not use illicit drugs. FAMILY MEDICAL HISTORY: Remarkable for diabetes and heart disease. REVIEW OF SYSTEMS: Twelve-point review of systems is otherwise negative. OUTPATIENT MEDICATIONS: 1. Metformin. 2. Glipizide. 3. Anoro Ellipta. 4. Aldactone. 5. Omeprazole. 6. Nicotine. 7. Vascepa. 8. Celexa. 9. Coreg. 10. Lipitor. 11. Aspirin. 12. Amlodipine. 13. Tylenol. 14. Xanax. PHYSICAL EXAMINATION: VITAL SIGNS: Pulse 65, respirations 18, O2 sat 100% on 2 L, and temperature 97. GENERAL: She is awake, alert, in no distress. HEENT: Remarkable for ecchymosis around both eyes. NECK: No adenopathy or JVD. LUNGS: Clear without wheezing or rhonchi. CARDIAC: S1 and S2 regular without murmur. ABDOMEN: Soft, nontender, and nondistended. EXTREMITIES: No clubbing, cyanosis or edema. LABORATORY DATA: White blood cell count 8.2, hematocrit 33, and platelet count 283. PH of 7.41, pCO2 of 55, and pO2 of 55. Sodium 140, potassium 3.9, chloride 102, CO2 of 30, BUN 12, creatinine 1.2, and glucose 117. DIAGNOSTIC DATA: Chest x-ray shows no mass effusion or infiltrates. ASSESSMENT: 1. Obesity hypoventilation syndrome, which is probably stable. 2. Chronic obstructive pulmonary disease with mild exacerbation at the time of presentation to the ER. 3. Status post fall. 4. Diabetes mellitus. PLAN: 1. I would think she can transfer to the medical floor and does not need any more CPAP or BiPAP at this time. 2. I would add low-dose corticosteroids since she has COPD exacerbation. 3. Nebulization treatments. Job ID: [id number]
[2019-11-30] MEDS ORDERED: FLU VACC TS2019-20(65YR UP)/PF 180 MCG/0.5 ML SYRINGE IM ONE (11:30)
[2019-11-30] MEDS: methylPREDNISolone Sod Succ 40 MG VIAL IVP SCH ×3 (12:13→23:16)
[2019-11-30] MEDS: Insulin Regular 300 UNITS/3 ML VIAL SC PRN (20:42)
[2019-12-01] MEDS: Insulin Regular 300 UNITS/3 ML VIAL SC PRN ×4 (01:18→20:09)
[2019-12-01] MEDS: MEROPENEM 1 GM/50 ML 1 GM in Premix Bag 1 BAG IVPB SCH ×3 (05:34→21:21)
[2019-12-01] MEDS: methylPREDNISolone Sod Succ 40 MG VIAL IVP SCH ×4 (05:34→23:18)
[2019-12-01 05:41] LABS: #Lymphocytes 0.4 thou/uL (1.20-3.40); #Monocytes 0.1 thou/uL (0.11-0.59); #Neutrophils 6.8 thou/uL (1.40-6.50); %Basophils 0.5 % (0.0-1.0); %Eosinophils 0.1 % (0.0-10.0); %Lymphocytes 5.4 % (21.0-51.0); %Monocytes 1.7 % (0.0-10.0); %Neutrophils 92.4 % (42.0-75.0); Mean Corpuscular HGB CONC 33.2 g/dL (32.0-36.0); Mean Corpuscular Hemoglobin 29.4 pg (27.0-31.0); Mean Corpuscular Volume 88.6 fL (78.0-98.0); Platelet Count 290 thou/uL (130-400); RBC Distribution Width 13.8 % (11.5-14.5); Red Blood Cell (RBC) Count 3.75 mill/uL (4.20-5.40); White Blood Cell (WBC) Count 7.4 thou/uL (4.8-10.8)
[2019-12-01 06:11] LABS: ALT (SGPT) 39 U/L (8-55); AST (SGOT) 11 U/L (5-34); Albumin 3.6 g/dL (3.4-4.8); Alkaline Phosphatase 210 U/L (40-110); Anion Gap 15 mmol/L (10-20); BUN (Urea Nitrogen) 15 mg/dL (9.8-20.1); Bilirubin, Total 0.4 mg/dL (0.2-1.2); Calc. Creatinine Clearance 55 mL/min (70-130); Calcium 9.7 mg/dL (7.8-10.44); Carbon Dioxide 26 mmol/L (23-31); Chloride 101 mmol/L (98-107); Estimated GFR-MDRD 44; Globulin 2.9 g/dL (2.4-3.5); Glucose 204 mg/dL (80-115); Potassium 4.2 mmol/L (3.5-5.1); Protein, Total 6.5 g/dL (6.0-8.3); Sodium 138 mmol/L (136-145)
[2019-12-01] MEDS: Aspirin 81 mg Enteric Coated Tablet PO SCH (07:48)
[2019-12-01] MEDS: Famotidine/PF 20 mg/2ml Vial SLOW IVP SCH (07:48)
[2019-12-01] MEDS: Saccharomyces boulardii 250 MG CAP PO SCH (07:48)
[2019-12-01] MEDS: Senokot S 8.6-50 MG TAB PO SCH ×2 (07:48→20:08)
[2019-12-01] MEDS: Famotidine 20 MG TAB PO SCH (07:48)
[2019-12-01] MEDS: Budesonide 0.5 MG/2 ML NEB INH SCH ×2 (08:23→18:10)
--- NOTE | 2019-12-01 09:02 | PRG ---
DATE OF SERVICE: 12/01/2019 SUBJECTIVE: She feels better and wants to go home. She is not having any shortness of breath. OBJECTIVE: VITAL SIGNS: On exam, temperature is 98.3, pulse 60, respirations 20, O2 saturation 93% on 3 L, blood pressure 159/69. HEENT: Unremarkable. NECK: No adenopathy or JVD. LUNGS: No wheezing. CARDIAC: S1 and S2, regular. ABDOMEN: Soft. EXTREMITIES: No edema. LABORATORY DATA: White blood cell count 7.4, hematocrit 33.2, and platelet count 290. Sodium 138, potassium 4.2, BUN 15, creatinine 1.2, glucose 204. ASSESSMENT: 1. Chronic obstructive pulmonary disease with acute on chronic exacerbation. 2. Chronic hypoxic respiratory failure, requiring home O2. 3. Tobacco abuse. 4. Current x-ray today showing no real acute findings. PLAN: From my standpoint, she is probably good to go home either this afternoon or tomorrow morning. I would send her home on 2 weeks taper of steroid along with the nebulization treatments, with close followup with Dr. Henderson as an outpatient. Job ID: [id number]
--- NOTE | 2019-12-01 09:18 | RAD ---
SINGLE VIEW OF THE CHEST: COMPARISON: 11/29/2019. HISTORY: Pneumonia and respiratory. FINDINGS: Single view of the chest shows a normal sized cardiomediastinal silhouette. There is no evidence of c onsolidation, mass, or pleural effusion. The bones are unremarkable. IMPRESSION: No evidence of acute cardiopulmonary disease. POS: [facility]
--- NOTE | 2019-12-01 18:04 | PDOC.HOSPP ---
- Subjective Encounter Date: 12/01/19 Subjective: Feels better. - Objective Vital Signs & Weight: Vital Signs (12 hours) Temp Pulse Resp BP Pulse Ox Pulse Ox Pulse Ox 12/01/19 15:38 98.2 F 77 17 155/81 H 94 L 12/01/19 15:12 81 20 12/01/19 11:34 98.2 F 81 20 160/65 H 91 L 12/01/19 10:42 84 20 92 L 12/01/19 09:11 84 L 89 L 12/01/19 08:22 62 20 93 L 12/01/19 08:00 93 L 12/01/19 07:23 98.3 F 71 18 159/69 H 92 L Weight Weight 171 lb 11.2 oz I&O: 11/30/19 12/01/19 12/02/19 06:59 06:59 06:59 Intake Total 1610 600 Balance 1610 600 Result Diagrams: 12/01/19 05:20 12/01/19 05:20 Additional Labs: Accuchecks 12/01/19 12/01/19 12/01/19 15:45 11:42 05:20 POC Glucose 206 H 245 H 205 H 12/01/19 11/30/19 00:52 19:58 POC Glucose 241 H 225 H Hospitalist ROS - Medication Medications: Active Medications Generic Name Dose Route Start Last Admin Trade Name Freq PRN Reason Stop Dose Admin Albuterol/Ipratropium 3 ml 11/30/19 06:30 12/01/19 15:12 Duoneb NEB 3 ml [id number] CHERELLE Administration Aspirin 81 mg 11/30/19 09:00 12/01/19 07:48 Ecotrin PO 81 mg DAILY CHERELLE Administration Budesonide 0.5 mg 11/30/19 06:30 12/01/19 08:23 Pulmicort Neb Solution INH 0.5 mg BID-RT CHERELLE Administration Famotidine 20 mg 11/30/19 09:00 12/01/19 07:48 Pepcid SLOW IVP Not Given 0900 CHERELLE Famotidine 20 mg 11/30/19 09:00 12/01/19 07:48 Pepcid PO 20 mg 0900 CHERELLE Administration Meropenem 1 gm/ Device 50 mls @ 100 mls/hr 11/30/19 06:00 12/01/19 13:35 IVPB 50 mls Q8HR CHERELLE Administration Insulin Human Regular 0 units 11/30/19 04:18 12/01/19 12:19 Humulin R SC 3 unit .MILD SLIDING SCALE PRN Administration Mild Correctional Scale Insulin Human Regular 0 units 11/30/19 04:22 12/01/19 01:18 Humulin R SC 2 unit .BEDTIME SLIDING SC PRN Administration Bedtime Correctional Scale Methylprednisolone Sodium Succinate 20 mg 11/30/19 12:00 12/01/19 17:30 Solu-Medrol IVP 20 mg Q6HR CHERELLE Administration Saccharomyces Boulardii 250 mg 11/30/19 09:00 12/01/19 07:48 Florastor PO 250 mg DAILY CHERELLE Administration Senna/Docusate Sodium 2 tab 11/30/19 09:00 12/01/19 07:48 Senokot S PO 2 tab BID CHERELLE Administration - Exam General Appearance: NAD, awake alert ENT: normocephalic atraumatic Neck: supple, no JVD Heart: RRR, no murmur, no gallops, no rubs, normal peripheral pulses Respiratory: CTAB, no wheezes, no rales Gastrointestinal: soft, non-tender, non-distended, normal bowel sounds Hosp A/P (1) Acute and chronic respiratory failure with hypoxia Code(s): J96.21 - ACUTE AND CHRONIC RESPIRATORY FAILURE WITH HYPOXIA Status: Acute (2) Acute and chronic respiratory failure with hypercapnia Code(s): J96.22 - ACUTE AND CHRONIC RESPIRATORY FAILURE WITH HYPERCAPNIA Status: Acute (3) COPD exacerbation Code(s): J44.1 - CHRONIC OBSTRUCTIVE PULMONARY DISEASE W (ACUTE) EXACERBATION Status: Acute (4) Acute encephalopathy Code(s): G93.40 - ENCEPHALOPATHY, UNSPECIFIED Status: Acute - Plan The patient's respiratory status has improved since yesterday. She required brief course of BiPAP yesterday. Continue nebulizer treatments, corticosteroids, and antibiotics. Plan to DC home tomorrow.
[2019-12-02] MEDS: MEROPENEM 1 GM/50 ML 1 GM in Premix Bag 1 BAG IVPB SCH ×2 (05:20→13:43)
[2019-12-02] MEDS: methylPREDNISolone Sod Succ 40 MG VIAL IVP SCH ×2 (05:21→12:12)
[2019-12-02] MEDS: Insulin Regular 300 UNITS/3 ML VIAL SC PRN ×2 (05:22→12:58)
[2019-12-02] MEDS: Budesonide 0.5 MG/2 ML NEB INH SCH (07:20)
[2019-12-02] MEDS: Famotidine 20 MG TAB PO SCH (09:02)
[2019-12-02] MEDS: Senokot S 8.6-50 MG TAB PO SCH (09:02)
[2019-12-02] MEDS: Saccharomyces boulardii 250 MG CAP PO SCH (09:02)
[2019-12-02] MEDS: Aspirin 81 mg Enteric Coated Tablet PO SCH (09:02)
[2019-12-02] MEDS: Famotidine/PF 20 mg/2ml Vial SLOW IVP SCH (09:03)
--- NOTE | 2019-12-02 10:01 | PRG ---
DATE OF SERVICE: 12/02/2019 SUBJECTIVE: She feels okay and wants to go home. OBJECTIVE: VITAL SIGNS: Temperature 98.5, pulse 70, respirations 22, O2 saturation 93% on 2 L, and blood pressure 143/78. HEENT: Remarkable for bilateral ecchymoses around the eyes. NECK: No JVD. LUNGS: Clear without wheezing or rhonchi. CARDIAC: S1 and S2, regular. ABDOMEN: Soft and nontender. EXTREMITIES: No edema. ASSESSMENT: 1. Chronic obstructive pulmonary disease with exacerbation. 2. Chronic hypoxic and hypercapnic respiratory failure. PLAN: From my standpoint, she is cleared to go home. She needs to follow up with Dr. Henderson in a few weeks. I would send her home on 7 days of antibiotics and taper of steroids over a couple of weeks. Pulmonary will sign off. Please recall if further assistance needed. Job ID: [id number]
[2019-12-02 11:02] VITALS: TEMP 98.3
--- NOTE | 2019-12-02 13:30 | PQF ---
GRICELDA IVAN MOEZ [id number] CLINICAL DOCUMENTATION IMPROVEMENT CLARIFICATION FORM: ICD-10 Updated PLEASE DO AN ADDENDUM TO THE PROGRESS NOTE WITH ANY DOCUMENTATION UPDATES OR ADDITIONS AND CARRY THROUGH TO DC SUMMARY. THANK YOU. DATE: 12/02/2019 ATTN:DR. Luis BRANHAM Please exercise your independent, professional judgment in responding to the clarification form. Clinical indicators are provided on the bottom of this form for your review. Please check appropriate box(s) to clarify if the following diagnosis has been ruled in or ruled out Aspiration Pneumonia [ ] Ruled in diagnosis [ ] Continue to treat [ ] Resolved [ > ] Ruled out diagnosis [ ] Other diagnosis __Community acquired Pneumonia due to possiblegram negative bacterial infection [ ] Unable to determine In addition, please specify: Present on Admission (POA): [ Suspected on admission ] Yes [ ] No [ ] Unable to determine For continuity of documentation, please document condition throughout progress notes and discharge summary. Thank You. CLINICAL INDICATORS - SIGNS / SYMPTOMS / LABS / RESULTS AND LOCATION IN MR 11/29 ED REPORT : O2 SAT 84% RA > 92-96% 3L/NC, > 97% BIPAP, TEMP 100.0, ED PHYSICIAN FINAL DX: PNA, HYPOXIC RESP FAILURE 11/30 H&P (LADHA) IMPRESSION: 3). ASPIRATION PNEUMONIA 11/30 CXR : LUNGS APPEAR CLEAR. NO INFILTRATE OR VASCULAR CONGESTION. HEART IS MILDLY PROMINENT. 12/01 CXR : NO EVIDENCE OF CONSOLIDATION, MASS OR PLEURAL EFFUSION. RISK: CURRENT TOBACCO ABUSE , COPD EXACERBATION, ACUTE HYPOXIC/HYPERCAPNIC RESPIRATORY FAILURE (LADHA /H&P) 11/29 TREATMENTS: SERIAL CXR ( 11/29-PRESENT) MEROPENEM IV (11/30- PRESENT) THANK YOU! IRENE (This form is maintained as a part of the permanent medical record) 2014 [employer]. All Rights Reserved [email or web address] [phone] [email or web address]
[2019-12-02 15:37] VITALS: BP 158/82
--- NOTE | 2019-12-03 03:36 | DIS ---
DATE OF ADMISSION: 11/29/2019 DATE OF DISCHARGE: 12/02/2019 HISTORY OF PRESENT ILLNESS AND HOSPITAL COURSE: The patient is a 64-year-old female with history of chronic obstructive pulmonary disease, obstructive sleep apnea, chronic kidney disease, and coronary artery disease, who was brought to the hospital due to decrease in her mentation. The patient complained of worsening shortness of breath over the past 3 days and she also complained of productive cough and some chest discomfort. She denied fever, chills, nausea, vomiting, palpitations, or dizziness. Neurological examination in the ER did not reveal any focality and her ABG showed increased hypercarbia. The patient was found to be in acute exacerbation of COPD and was placed on BiPAP for 4 hours. She was subsequently weaned off and transitioned to the medical floor, where she was managed with nebulized treatments, antibiotics, and corticosteroids for 3 days leading to gradual improvement in her respiratory status. On the day of discharge, the patient was alert and oriented x3, and she was saturating well on room air. DISCHARGE DIAGNOSES: 1. Acute on chronic hypoxic and hypercarbic respiratory failure. 2. Exacerbation of chronic obstructive pulmonary disease. 3. Encephalopathy due to hypercarbia. 4. Coronary artery disease. 5. Obstructive sleep apnea. 6. Diabetes mellitus type 2. 7. Hypertension. 8. Chronic diastolic heart failure. 9. CAP due to possible gram negative bacteria. DISCHARGE MEDICATIONS: 1. Prednisone 40 mg orally daily for 5 days. 2. Levofloxacin 500 mg orally daily for 5 days. 3. Aldactone 25 mg orally daily. 4. Omeprazole 40 mg orally daily. 5. Metformin 500 mg orally twice daily. 6. Glipizide 10 mg orally twice daily. 7. Citalopram 20 mg orally nightly. 8. Carvedilol 12.5 mg orally twice daily. 9. Atorvastatin 20 mg orally nightly. 10. Aspirin 325 mg orally nightly. 11. Xanax 0.5 mg orally twice daily. 12. Amlodipine 10 mg orally daily. 13. DuoNeb q.6 hours as needed for shortness of breath or wheezing. DISCHARGE INSTRUCTIONS: The patient was instructed to follow up with her PCP in 1 week. Exercise as tolerated. Low-salt diabetic diet. Job ID: [id number] [facility]
== END 2019-12-02 16:00 | disposition home or self-care (01) | DRG 189 ==
LOC: ERS 17:01 → ERHOLD 23:18 → T4-B 11-30 10:34
PROVIDERS: ADMIT Internal Medicine; ATTEND Internal Medicine
DX: J96.21 Acute and chronic respiratory failure with hypoxia (principal); G92 Toxic encephalopathy; J44.1 Chronic obstructive pulmonary disease with (acute) exacerbation; I13.0 Hypertensive heart and chronic kidney disease with heart failure and stage 1 through stage 4 chronic kidney disease, or unspecified chronic kidney disease; I50.32 Chronic diastolic (congestive) heart failure; E66.2 Morbid (severe) obesity with alveolar hypoventilation; J96.22 Acute and chronic respiratory failure with hypercapnia; I25.10 Atherosclerotic heart disease of native coronary artery without angina pectoris; E11.22 Type 2 diabetes mellitus with diabetic chronic kidney disease; N18.3 Chronic kidney disease, stage 3 (moderate); F41.9 Anxiety disorder, unspecified; F17.210 Nicotine dependence, cigarettes, uncomplicated; F32.9 Major depressive disorder, single episode, unspecified; I44.7 Left bundle-branch block, unspecified; Z95.5 Presence of coronary angioplasty implant and graft; Z88.5 Allergy status to narcotic agent; Z88.0 Allergy status to penicillin; Z91.041 Radiographic dye allergy status; Z79.82 Long term (current) use of aspirin; Z79.899 Other long term (current) drug therapy; Z79.84 Long term (current) use of oral hypoglycemic drugs; Z68.29 Body mass index [BMI] 29.0-29.9, adult
CPT/HCPCS: 36415; 36416; 70450; 71045; 71250; 72125; 74177; 80048; 80053; 82550; 82805; 83605; 83735; 83880; 84100; 84484; 85025; 87040; 93005; 94640; 94660; 94760; 96365; 96367; J0456; J0696; J1815; J2185; J2920; J7050; J7620; J7626

== ENCOUNTER 2020-08-11 18:02 | Inpatient (IN) | payer MEDICARE, OTHER ==
[2020-08-11 19:13] LABS: #Eosinphils 0.2 thou/uL (0.0-0.7); #Lymphocytes 1.5 thou/uL (1.20-3.40); #Monocytes 0.6 thou/uL (0.11-0.59); #Neutrophils 5.9 thou/uL (1.40-6.50); %Basophils 0.3 % (0.0-1.0); %Eosinophils 1.9 % (0.0-10.0); %Lymphocytes 18.1 % (21.0-51.0); %Monocytes 6.8 % (0.0-10.0); %Neutrophils 72.8 % (42.0-75.0); Hemoglobin 11.1 g/dL (12.0-16.0); Mean Corpuscular HGB CONC 32.2 g/dL (32.0-36.0); Mean Platelet Volume 7.7 fL (7.4-10.4); Platelet Count 270 thou/uL (130-400); RBC Distribution Width 14.6 % (11.5-14.5); Red Blood Cell (RBC) Count 3.96 mill/uL (4.20-5.40); White Blood Cell (WBC) Count 8.1 thou/uL (4.8-10.8)
[2020-08-11 19:36] LABS: ALT (SGPT) Less than 7 U/L (8-55); AST (SGOT) 7 U/L (5-34); Albumin 3.6 g/dL (3.4-4.8); Alkaline Phosphatase 119 U/L (40-110); Anion Gap 13 mmol/L (10-20); BUN (Urea Nitrogen) 11 mg/dL (9.8-20.1); Bilirubin, Total 0.5 mg/dL (0.2-1.2); CK (CPK) 57 U/L (29-168); Calc. Creatinine Clearance 0 mL/min (70-130); Calcium 8.9 mg/dL (7.8-10.44); Carbon Dioxide 28 mmol/L (23-31); Chloride 102 mmol/L (98-107); Estimated GFR-MDRD 43; Globulin 2.4 g/dL (2.4-3.5); Glucose 178 mg/dL (80-115); Lipase 11 U/L (8-78); Potassium 3.3 mmol/L (3.5-5.1); Sodium 140 mmol/L (136-145)
[2020-08-11] MEDS ORDERED: Dexamethasone 4 mg/ml Vial ONE (19:55)
[2020-08-11] MEDS ORDERED: Aspirin Chewable 81 MG TAB ONE (19:55)
[2020-08-11] MEDS ORDERED: Enoxaparin Sodium 100 MG/ML SYRINGE ONE (20:15)
--- NOTE | 2020-08-11 20:27 | RAD ---
PORTABLE CHEST: 08/11/20 HISTORY: Dyspnea. COMPARISON: 12/01/19. There is new hazy alveolar infiltrate in the right lower lobe. Evidence of small effusions. Mild vasc ular congestion. Mild cardiomegaly. IMPRESSION: Evidence of new infiltrate in the right lower lobe. POS: [facility]
[2020-08-11] MEDS ORDERED: Diltiazem 125 MG/25 ML ONE (21:38)
[2020-08-11 21:39] LABS: SARS-CoV-2 NAA Rapid Test Not Detected (NotDetected)
[2020-08-11] MEDS ORDERED: Sodium Chloride 0.9% 1,000 ML IV SCH (22:45)
[2020-08-11] MEDS ORDERED: Ondansetron ODT 4 MG TAB SL PRN (22:45)
[2020-08-11] MEDS ORDERED: Ondansetron PF 4 MG/2 ML Vial IVP PRN (22:45)
[2020-08-11] MEDS ORDERED: Guaifenesin DM 100-10/5 ML UDCUP PO PRN (23:08)
[2020-08-11] MEDS ORDERED: Acetaminophen 650 MG Suppository PR PRN (23:08)
[2020-08-11] MEDS ORDERED: Acetaminophen 325 MG TAB PO PRN (23:08)
[2020-08-11] MEDS ORDERED: Calcium Carbonate 500 MG ChewTAB PO PRN (23:08)
[2020-08-11] MEDS ORDERED: HYDROcodone/Acetaminophen 5/325 mg Tablet PO PRN (23:08)
--- NOTE | 2020-08-11 23:18 | PDOC.HHP ---
Hospitalist HPI - History of Present Illness cough fever History of Present Illness: Case of an 65y/o female with pmhx of copd, cad, dm, ckd and htn who comes to hospital for covid evaluation. patient refers she was on her usual state of health until yesterday when she started with cough fever chills and headaches. she states when to a testing center but they refer to her to come to the hospital because her saturation and her b/p was elevated. patient refers she has been visiting her mother at senior living who is covid positive. at the ED patient was evaluated and found to be hypoxic in the 80s for which hospitalist was called for further evaluation and management. Hospitalist ROS - Review of Systems All other systems reviewed; all pertinent +/- noted in HPI/Subj - Medication Medications: Active Medications Generic Name Dose Route Start Last Admin Trade Name Freq PRN Reason Stop Dose Admin Sodium Chloride 1,000 mls @ 90 mls/hr 08/11/20 22:45 08/11/20 23:04 Normal Saline 0.9% IV 08/12/20 08:00 1,000 mls .[id number] CHERELLE Administration Hospitalist History - Past Surgical History Past Surgical History: reports: Appendectomy, Cholecystectomy, Tonsillectomy - Family History Family History: reports: diabetes mellitus, hypertension - Social History Smoking Status: Current every day smoker Alcohol: reports: Occassional Drugs: reports: none Living Situation: Alone Occupation: disabled - Exam General Appearance: NAD, awake alert Eye: PERRL, anicteric sclera ENT: normocephalic atraumatic, no oropharyngeal lesions Neck: supple, symmetric, no JVD Heart: RRR, no murmur, no gallops Respiratory: no wheezes, no rales, no ronchi Gastrointestinal: soft, non-tender, non-distended, normal bowel sounds Extremities: no cyanosis, no clubbing Skin: normal turgor, no lesions Neurological: cranial nerve grossly intact, normal sensation to touch, no weakness Musculoskeletal: normal tone, normal strength, no muscle wasting Psychiatric: normal affect, normal behavior, A&O x 3 Hospitalist Results - Labs Result Diagrams: 08/11/20 19:02 08/11/20 19:02 Lab results: WBC 8.1 thou/uL (4.8-10.8) 08/11/20 19:02 Hgb 11.1 g/dL (12.0-16.0) L 08/11/20 19:02 Hct 34.4 % (36.0-47.0) L 08/11/20 19: MCV 87.0 fL (78.0-98.0) 08/11/20 19:02 Plt Count 270 thou/uL (130-400) 08/11/20 19:02 Neutrophils % 72.8 % (42.0-75.0) 08/11/20 19:02 Sodium 140 mmol/L (136-145) 08/11/20 19:02 Potassium 3.3 mmol/L (3.5-5.1) L 08/11/20 19:02 Chloride 102 mmol/L (98-107) 08/11/20 19:02 Carbon Dioxide 28 mmol/L (23-31) 08/11/20 19:02 BUN 11 mg/dL (9.8-20.1) 08/11/20 19:02 Creatinine 1.25 mg/dL (0.6-1.1) H 08/11/20 19:02 Glucose 178 mg/dL (80-115) H 08/11/20 19:02 Lactic Acid 1.0 mmol/L (0.5-2.2) 08/11/20 20:21 Calcium 8.9 mg/dL (7.8-10.44) 08/11/20 19:02 Total Bilirubin 0.5 mg/dL (0.2-1.2) 08/11/20 19:02 AST 7 U/L (5-34) 08/11/20 19:02 ALT Less than 7 U/L (8-55) L 08/11/20 19:02 Alkaline Phosphatase 119 U/L (40-110) H 08/11/20 19:02 Creatine Kinase 57 U/L (29-168) 08/11/20 19:02 Troponin I 0.024 ng/mL (< 0.028) 08/11/20 19:02 B-Natriuretic Peptide 265.3 pg/mL (0-100) H 08/11/20 19:02 Serum Total Protein 6.0 g/dL (6.0-8.3) 08/11/20 19:02 Albumin 3.6 g/dL (3.4-4.8) 08/11/20 19:02 Lipase 11 U/L (8-78) 08/11/20 19:02 Hospitalist H&P A/P - Problem (1) Pneumonia due to COVID-19 virus Code(s): U07.1 - COVID-19; J12.89 - OTHER VIRAL PNEUMONIA Status: Acute (2) Respiratory failure with hypoxia Code(s): J96.91 - RESPIRATORY FAILURE, UNSPECIFIED WITH HYPOXIA Status: Acute (3) CKD (chronic kidney disease) stage 3, GFR 30-59 ml/min Code(s): N18.3 - CHRONIC KIDNEY DISEASE, STAGE 3 (MODERATE) * DO NOT USE * Status: Acute (4) Type 2 diabetes mellitus Status: Acute (5) CAD Status: Chronic (6) COPD (chronic obstructive pulmonary disease) Status: Chronic Qualifiers: COPD type: unspecified COPD Qualified Code(s): J44.9 - Chronic obstructive pulmonary disease, unspecified (7) Dyslipidemia Code(s): E78.5 - HYPERLIPIDEMIA, UNSPECIFIED Status: Chronic (8) Hypertension Code(s): I10 - ESSENTIAL (PRIMARY) HYPERTENSION Status: Chronic Qualifiers: Hypertension type: essential hypertension Qualified Code(s): I10 - Essential (primary) hypertension (9) Tobacco user Code(s): Z72.0 - TOBACCO USE Status: Chronic - Plan Plan: 65y/o female with the stated pmhx who presents with symptoms of covid 19 covid 19 pneumonia - initial test negative - cxr with infiltratre - will start levaquin prophylactically - f/u blood cultures - f/u inflammation markers - id consulted - dexamethasone 6mg ivd - f/u flu screen respiratory failure hypoxic - 02 supplementation goal 92%max - secondary to above dm - ss+ acc - long acting insulin copd - prn albuterol inhaler cad/htn -continue home meds
[2020-08-12 00:22] VITALS: BMI 31.2
[2020-08-12] MEDS ORDERED: Albuterol Sulfate 2.5 mg/3 ml Neb NEB PRN (01:29)
[2020-08-12] MEDS ORDERED: Albuterol 200 PUFF (6.7GM INHALER) INH PRN (01:35)
[2020-08-12] MEDS ORDERED: Potassium Chloride 20 MEQ TAB PO SCH (01:45)
[2020-08-12 05:32] LABS: Band 2 % (5-11); Lymphocytes 5 % (21-51); MDiff Complete? YES; Mean Corpuscular HGB CONC 32.4 g/dL (32.0-36.0); Mean Corpuscular Volume 86.5 fL (78.0-98.0); Mean Platelet Volume 7.9 fL (7.4-10.4); Neutrophil 93 % (42-75); Platelet Count 293 thou/uL (130-400); Platelet Morphology Comment Appears Adequate; RBC Distribution Width 14.6 % (11.5-14.5); RBC Morphology Normal; Red Blood Cell (RBC) Count 4.28 mill/uL (4.20-5.40); White Blood Cell (WBC) Count 9.3 thou/uL (4.8-10.8)
[2020-08-12 05:39] LABS: ALT (SGPT) 8 U/L (8-55); AST (SGOT) 7 U/L (5-34); Albumin 3.4 g/dL (3.4-4.8); Alkaline Phosphatase 120 U/L (40-110); Anion Gap 12 mmol/L (10-20); BUN (Urea Nitrogen) 13 mg/dL (9.8-20.1); Bilirubin, Total 0.4 mg/dL (0.2-1.2); CRP (Inflammatory) 1.33 mg/dL (= or < 0.5); Calc. Creatinine Clearance 62 mL/min (70-130); Carbon Dioxide 27 mmol/L (23-31); Chloride 104 mmol/L (98-107); Estimated GFR-MDRD 48; Globulin 2.9 g/dL (2.4-3.5); Glucose 243 mg/dL (80-115); Magnesium 1.2 mg/dL (1.6-2.6); Potassium 4.1 mmol/L (3.5-5.1); Protein, Total 6.3 g/dL (6.0-8.3); Sodium 139 mmol/L (136-145)
[2020-08-12] MEDS ORDERED: Magnesium 2 GM/50 ML 2 GM in Premix Bag 1 BAG IVPB SCH (08:30)
[2020-08-12] MEDS ORDERED: Dexamethasone 4 mg/ml Vial SLOW IVP SCH (09:00)
[2020-08-12] MEDS ORDERED: Enoxaparin Sodium 40 MG/0.4 ML SYRINGE SC SCH (09:00)
[2020-08-12] MEDS ORDERED: Cefdinir 300 MG CAP PO SCH (13:45)
[2020-08-12] MEDS ORDERED: Doxycycline 100 MG CAP PO SCH (13:45)
--- NOTE | 2020-08-12 18:03 | PDOC.HOSPP ---
- Subjective Encounter Date: 08/12/20 Encounter Time: 13:00 Subjective: F/u: pneeumonia Patient states that her shortness of breath has resolved. Yesterday she had shortness of breath while laying down but now she is back to normal and wants to go home. She denies chest pain. She denies significant cough. When her oxygen was weaned down to room air was saturating 73%. Patient states that her mother has Covid and is in a long term. Her mother had COVID 3 days ago. The last time she visited her mother was 1 month ago. At that time the patient had a negative test prior to visiting her and her mother was negative as well. - Objective Vital Signs & Weight: Vital Signs (12 hours) Temp Pulse Resp BP Pulse Ox 08/12/20 15:01 98.1 F 74 16 164/60 H 74 L 08/12/20 08:15 98.2 F 75 16 124/71 98 Weight Weight 182 lb Result Diagrams: 08/12/20 05:01 08/12/20 05:01 Hospitalist ROS - Review of Systems Constitutional: denies: fever, chills - Exam General Appearance: NAD, awake alert Eye: PERRL, anicteric sclera ENT: normocephalic atraumatic, no oropharyngeal lesions Neck: no JVD Heart: RRR, no murmur, no gallops, no rubs Respiratory - other findings: right sided crackles Gastrointestinal: soft, non-tender, non-distended Extremities: no cyanosis, no clubbing, no edema Skin: normal turgor, no lesions, no rashes Hosp A/P - Plan Chest X ray: new infiltrates right lower lobe This is a 65 year old female who presented with fever and shortness of breath. She went to an urgent care to get a COVID test and was sent here due to hypoxia. She was found to have a left sided pneumonia Acute hypoxic respiratory failure secondary to pneumonia - the patient was started on IV levaquin. COVID test was negative. She has not been exposed to her mom since she developed COVID, so will discontinue isolation precautions - she is afebrile, so will switch to oral cefdinir and doxycyclin given QT prolongation with citalopram if given levaquin or azithromycin - continue to wean oxygen sat to 92% CKD stage III - creatinine 1.1, currently at baseline Type II diabetes - check fingersticks achs - insulin sliding scale for now Hypertension - resume home amlodipine - discontinue fluids Depression - resume celexa
[2020-08-12] MEDS ORDERED: Dextrose 5% in Water 1,000 ML IV PRN (18:07)
[2020-08-12] MEDS ORDERED: Dextrose 50% Abboject 50 ML SYRINGE SLOW IVP PRN (18:07)
[2020-08-12] MEDS ORDERED: Amlodipine 10 MG TAB PO SCH (18:15)
[2020-08-12] MEDS ORDERED: Citalopram 20 MG TAB PO SCH (21:00)
[2020-08-12] MEDS: Doxycycline 100 MG CAP PO SCH (21:01)
[2020-08-12] MEDS: Cefdinir 300 MG CAP PO SCH (21:01)
[2020-08-12] MEDS ORDERED: Magnesium Oxide 400 MG TAB PO SCH (21:45)
[2020-08-12] MEDS: HumaLOG 300 UNITS/3 ML VIAL SC PRN (21:46)
[2020-08-12] MEDS ORDERED: valACYclovir 500 MG TAB PO SCH (22:00)
[2020-08-13] MEDS: HumaLOG 300 UNITS/3 ML VIAL SC PRN (06:32)
[2020-08-13] MEDS ORDERED: Amlodipine 10 MG TAB PO SCH (09:00)
[2020-08-13] MEDS ORDERED: valACYclovir 500 MG TAB PO SCH (09:00)
[2020-08-13] MEDS: Doxycycline 100 MG CAP PO SCH (10:19)
[2020-08-13] MEDS: Cefdinir 300 MG CAP PO SCH (10:19)
[2020-08-13 11:49] VITALS: BP 154/55; TEMP 98.6
--- NOTE | 2020-08-13 18:03 | DIS ---
DATE OF ADMISSION: 08/11/2020 DATE OF DISCHARGE: 08/13/2020 DISCHARGE DISPOSITION: The patient signed out against medical advice. PRIMARY DISCHARGE DIAGNOSES: Acute respiratory failure with hypoxia, suspected right lower lobe pneumonia, obesity with BMI of 31, less likely chronic obstructive pulmonary disease exacerbation. SECONDARY DISCHARGE DIAGNOSES: Tobacco abuse, end-stage renal disease, diabetes mellitus type 2, hypertension. PROCEDURES DONE DURING HOSPITALIZATION: Chest x-ray done on the day of admission showed findings of right lower lobe infiltrate. H and H 12 and 37, platelet count 293, white count of 9. Ferritin 17.6, procalcitonin 0.02, CRP 1.3, BUN 13, creatinine 1.1, serum glucose 243. COVID-19 PCR was not detected on 08/11/2020. DISCHARGE MEDICATIONS: 1. Spironolactone 25 mg daily. 2. Norvasc 10 mg daily. 3. Anoro Ellipta inhaler daily. 4. Aspirin 81 mg daily. 5. Celexa 20 mg at bedtime. 6. Coreg 12.5 mg twice daily. 7. Lipitor 40 mg p.o. at bedtime. 8. Omeprazole 40 mg p.o. daily. 9. Vascepa 1 g p.o. q.a.m. 10. Xanax 1 mg twice daily p.r.n. 11. DuoNeb q.i.d. p.r.n. 12. Glipizide 10 mg twice daily. 13. Metformin 500 mg twice daily. 14. Omnicef 300 mg p.o. twice daily for a total of five days. 15. Doxycycline 100 mg twice daily for 5 days. 16. Prednisone 10 mg twice daily for 2 days, then 10 mg daily for 3 days and to discontinue. ALLERGIES: TO IODINE, CODEINE, PENICILLIN. DISCHARGE PLAN: The patient is strongly counseled to follow up with her primary care physician, Dr. Barbara Reyes in 1 week. BRIEF COURSE DURING HOSPITALIZATION: The patient initially came to ER on the with complaints of cough, fever, and shortness of breath. Her initial saturations were in the 80s and was placed on oxygen by nasal cannula. The patient has known history of obstructive sleep apnea and ongoing tobacco abuse as well. She was found to have had right lower lobe infiltrate and was placed on broad-spectrum IV antibiotics. The patient was still needing oxygen at the time of discharge, but the patient would not want to stay and signed out against advice. She was counseled to follow up with her primary care physician at the earliest. The patient's saturations dropped down to less than 80% off oxygen. She is clearly aware of respiratory failure and its complications. The patient also did mention that she would not want oxygen supplementation at any cost. Her initial COVID screen was negative. Please note, I have seen and examined the patient on the day of discharge. Again, please note the patient signed out against advice. Job ID: [id number]
== END 2020-08-13 11:55 | disposition left against medical advice (07) | DRG 193 ==
LOC: ERS 18:02 → SJJU 20:21
PROVIDERS: ADMIT Internal Medicine; ATTEND Internal Medicine
DX: J18.9 Pneumonia, unspecified organism (principal); J96.01 Acute respiratory failure with hypoxia; N18.6 End stage renal disease; J44.0 Chronic obstructive pulmonary disease with (acute) lower respiratory infection; I13.2 Hypertensive heart and chronic kidney disease with heart failure and with stage 5 chronic kidney disease, or end stage renal disease; I25.10 Atherosclerotic heart disease of native coronary artery without angina pectoris; E66.9 Obesity, unspecified; E11.22 Type 2 diabetes mellitus with diabetic chronic kidney disease; F32.9 Major depressive disorder, single episode, unspecified; E78.5 Hyperlipidemia, unspecified; N18.30 Chronic kidney disease, stage 3 unspecified; F17.210 Nicotine dependence, cigarettes, uncomplicated; I50.9 Heart failure, unspecified; Z20.828 Contact with and (suspected) exposure to other viral communicable diseases; Z90.49 Acquired absence of other specified parts of digestive tract; Z95.5 Presence of coronary angioplasty implant and graft; Z88.0 Allergy status to penicillin; Z88.6 Allergy status to analgesic agent; Z79.82 Long term (current) use of aspirin; Z79.899 Other long term (current) drug therapy; Z53.29 Procedure and treatment not carried out because of patient's decision for other reasons; Z68.31 Body mass index [BMI] 31.0-31.9, adult
CPT/HCPCS: 36415; 36416; 71045; 80053; 82550; 82728; 83605; 83615; 83690; 83735; 83880; 84145; 84484; 85007; 85025; 85027; 85379; 86140; 87040; 87804; 93005; 94640; 96365; 96366; 96372; 96375; J1100; J1650; J1956; J3475; U0002

== ENCOUNTER 2020-11-04 07:34 | Outpatient (CLI) | payer MEDICARE ==
[2020-11-04 11:54] LABS: #Eosinphils 0.2 10x3/uL (0.0-0.5); #Monocytes 0.6 10x3/uL (0.0-1.1); #Neutrophils 6.3 10x3/uL (1.5-8.4); %Basophils 0.5 % (0.0-2.0); %Eosinophils 1.9 % (0.0-6.0); %Monocytes 6.9 % (0.0-10.0); %Neutrophils 76.3 % (40.0-75.0); Hemoglobin 11.9 g/dL (12.0-16.0); Mean Corpuscular HGB CONC 30.6 G/DL (32.0-36.0); Mean Corpuscular Hemoglobin 26.3 PG (27.0-33.0); Mean Corpuscular Volume 86.1 fl (80.0-100.0); Mean Platelet Volume 11.2 fl (7.4-10.4); Platelet Count 271 10x3/uL (130-400); RBC Distribution Width 16.3 % (11.5-14.5); Red Blood Cell (RBC) Count 4.52 10x6/uL (3.90-5.20); White Blood Cell (WBC) Count 8.2 10x3/uL (4.5-11.0)
[2020-11-04 11:58] LABS: ALT (SGPT) 6 U/L (8-55); AST (SGOT) 8 U/L (5-34); Albumin 3.9 g/dL (3.4-4.8); Alkaline Phosphatase 114 U/L (40-110); Anion Gap 13 mmol/L (10-20); BUN (Urea Nitrogen) 14 mg/dL (9.8-20.1); Bilirubin, Total 0.3 mg/dL (0.2-1.2); Calc. Creatinine Clearance 0 mL/min (70-130); Calcium 9.8 mg/dL (7.8-10.44); Carbon Dioxide 29 mmol/L (23-31); Chloride 103 mmol/L (98-107); Globulin 2.6 g/dL (2.4-3.5); Glucose 183 mg/dL (80-115); Potassium 4.2 mmol/L (3.5-5.1); Protein, Total 6.5 g/dL (5.8-8.1); Sodium 141 mmol/L (136-145)
[2020-11-04 20:23] LABS: SARS-CoV-2 PCR by NAA Not Detected (NotDetected)
== END 2020-11-04 07:35 | disposition home or self-care (01) ==
LOC: LABBT 07:34
PROVIDERS: ATTEND Internal Medicine Cardiovascular Disease
DX: Z01.812 Encounter for preprocedural laboratory examination (principal); Z20.822 Contact with and (suspected) exposure to COVID-19
CPT/HCPCS: 80053; 85025; 87635; U0003; U0005

== ENCOUNTER 2020-11-09 09:49 | Day surgery (SDC) | payer MEDICARE ==
[2020-11-09] MEDS ORDERED: Amlodipine 5 MG TAB ONE (11:58)
[2020-11-09] MEDS ORDERED: Carvedilol 6.25 MG TAB ONE (11:59)
[2020-11-09] MEDS ORDERED: Carvedilol 6.25 MG TAB PO SCH (12:00)
[2020-11-09] MEDS ORDERED: Amlodipine 10 MG TAB PO SCH (12:00)
[2020-11-09] MEDS ORDERED: hydrALAZINE 20 MG/ML VIAL ONE (12:29)
[2020-11-09] MEDS ORDERED: Hydrocortisone Sod Succ/PF 100 mg/2 ml Vial ONE (12:31)
[2020-11-09] MEDS ORDERED: Heparin 10,000 UNITS/ 10 ML VIAL ONE (13:00)
[2020-11-09] MEDS ORDERED: Zolpidem Tartrate 5 MG TAB PO PRN (13:45)
[2020-11-09] MEDS ORDERED: Milk Of Magnesia 30 ML UDCUP PO PRN (13:45)
[2020-11-09] MEDS ORDERED: Sodium Chloride 0.9% 1,000 ML IV SCH (13:45)
[2020-11-09] MEDS ORDERED: Acetaminophen/Codeine 30-300mg Tablet PO PRN ×2 (13:45)
[2020-11-09] MEDS ORDERED: cloNIDine 0.1 MG TAB PO PRN (13:45)
[2020-11-09] MEDS ORDERED: Mag-Al 1200 mg/1200 mg/30 ML UDCUP PO PRN (13:45)
[2020-11-09] MEDS ORDERED: cloNIDine 0.1 MG TAB ONE (18:18)
--- NOTE | 2020-11-10 06:09 | OP ---
DATE OF PROCEDURE: 11/09/2020 PREPROCEDURE DIAGNOSIS: Claudication. POSTPROCEDURE DIAGNOSIS: Severe peripheral vascular disease. PROCEDURE PERFORMED: 1. Aortogram. 2. Bilateral aortofemoral runoff. 3. Successful CURRICULUM ASSISTANT only in a non-tandem fashion of the proximal and mid SFA on the left with a 5 x 20 mm [place] balloon catheter. COMPLICATIONS: None. BLOOD LOSS: Less than 10 mL. DETAILS: The patient was draped and prepped in sterile fashion. Access was obtained in the right femoral artery under ultrasound guidance. A Contra catheter was placed in the aorta with images performed. This was then retracted and placed in the contralateral segment successfully. Images then performed of the right and left lower extremity. FINDINGS: Aorta has no significant stenosis or aneurysm. There is calcification present. Left lower extremity: The common iliac, external iliac, and common femoral artery have no significant disease. The SFA does have 50% to 70% stenosis present in the proximal, mid, and distal region. The popliteal artery is free of any significant disease. There is one vessel runoff via the peroneal artery. Right lower extremity: The right common iliac, external iliac, and common femoral artery have no significant disease. The SFA does have a focal lesion estimated 70% to 80% in the mid distal SFA. The popliteal artery was free of significant disease. There is one vessel runoff to the foot. INTERVENTIONAL PROCEDURE: The 5-Faroese sheath was exchanged for a 5-Faroese destination sheath. This was placed in the contralateral segment successfully. Please note, there was a 20 mm gradient present during diagnostic angio of the proximal SFA lesion and the mid distal SFA lesion. After the wire was placed into the popliteal artery, CURRICULUM ASSISTANT was successfully performed with a 5 x 20 mm [place] balloon catheter at nominal pressure for 1 minute. There was excellent angiographic result at the end of study with no immediate complications. Job ID: [id number]
[2020-11-10] MEDS ORDERED: Aspirin Chewable 81 MG TAB PO SCH (09:00)
== END 2020-11-09 21:35 | disposition home or self-care (01) ==
LOC: CCL 09:49
PROVIDERS: ATTEND Internal Medicine Cardiovascular Disease
PROC: 047L3ZZ Dilation of Left Femoral Artery, Percutaneous Approach (ICD-10-PCS; principal; 2020-11-09)
DX: E11.51 Type 2 diabetes mellitus with diabetic peripheral angiopathy without gangrene (principal); I70.212 Atherosclerosis of native arteries of extremities with intermittent claudication, left leg; I70.0 Atherosclerosis of aorta; I25.10 Atherosclerotic heart disease of native coronary artery without angina pectoris; F41.9 Anxiety disorder, unspecified; I13.0 Hypertensive heart and chronic kidney disease with heart failure and stage 1 through stage 4 chronic kidney disease, or unspecified chronic kidney disease; E11.22 Type 2 diabetes mellitus with diabetic chronic kidney disease; N18.9 Chronic kidney disease, unspecified; I50.30 Unspecified diastolic (congestive) heart failure; K21.9 Gastro-esophageal reflux disease without esophagitis; E78.5 Hyperlipidemia, unspecified; J44.9 Chronic obstructive pulmonary disease, unspecified; F17.210 Nicotine dependence, cigarettes, uncomplicated; Z79.82 Long term (current) use of aspirin; Z79.84 Long term (current) use of oral hypoglycemic drugs; Z79.899 Other long term (current) drug therapy; Z88.0 Allergy status to penicillin; Z88.5 Allergy status to narcotic agent; Z91.041 Radiographic dye allergy status
CPT/HCPCS: 36416; 85347; J0360; J1644; J1720

== ENCOUNTER 2020-11-24 17:09 | Outpatient (CLI) | payer MEDICARE ==
[2020-11-17 14:53] LABS: #Eosinphils 0.2 10x3/uL (0.0-0.5); #Monocytes 0.7 10x3/uL (0.0-1.1); #Neutrophils 5.8 10x3/uL (1.5-8.4); %Basophils 0.5 % (0.0-2.0); %Eosinophils 2.6 % (0.0-6.0); %Lymphocytes 16.5 % (18.0-47.0); %Monocytes 8.4 % (0.0-10.0); %Neutrophils 71.5 % (40.0-75.0); Hemoglobin 11.5 g/dL (12.0-16.0); Mean Corpuscular HGB CONC 30.3 G/DL (32.0-36.0); Mean Corpuscular Hemoglobin 26.2 PG (27.0-33.0); Mean Corpuscular Volume 86.6 fl (80.0-100.0); Mean Platelet Volume 10.5 fl (7.4-10.4); Platelet Count 301 10x3/uL (130-400); RBC Distribution Width 15.9 % (11.5-14.5); Red Blood Cell (RBC) Count 4.39 10x6/uL (3.90-5.20); White Blood Cell (WBC) Count 8.1 10x3/uL (4.5-11.0)
[2020-11-17 15:07] LABS: ALT (SGPT) 6 U/L (8-55); AST (SGOT) 6 U/L (5-34); Albumin 3.6 g/dL (3.4-4.8); Alkaline Phosphatase 117 U/L (40-110); Anion Gap 11 mmol/L (10-20); BUN (Urea Nitrogen) 7 mg/dL (9.8-20.1); Bilirubin, Total 0.4 mg/dL (0.2-1.2); Calc. Creatinine Clearance 0 mL/min (70-130); Carbon Dioxide 32 mmol/L (23-31); Chloride 105 mmol/L (98-107); Globulin 2.7 g/dL (2.4-3.5); Glucose 155 mg/dL (80-115); Potassium 3.9 mmol/L (3.5-5.1); Protein, Total 6.3 g/dL (5.8-8.1); Sodium 144 mmol/L (136-145)
[2020-11-18 06:45] LABS: SARS-CoV-2 PCR by NAA Not Detected (NotDetected)
[2020-11-24 18:14] LABS: #Eosinphils 0.2 10x3/uL (0.0-0.5); #Monocytes 0.5 10x3/uL (0.0-1.1); #Neutrophils 5.9 10x3/uL (1.5-8.4); %Basophils 0.4 % (0.0-2.0); %Eosinophils 2.1 % (0.0-6.0); %Lymphocytes 16.9 % (18.0-47.0); %Monocytes 5.7 % (0.0-10.0); %Neutrophils 74.3 % (40.0-75.0); Hemoglobin 11.5 g/dL (12.0-15.5); Mean Corpuscular HGB CONC 30.7 g/dL (32.0-36.0); Mean Corpuscular Hemoglobin 26.1 pg (27.0-33.0); Mean Platelet Volume 10.3 fl (7.4-10.4); Platelet Count 332 10x3/uL (150-450); Red Blood Cell (RBC) Count 4.41 10x6/uL (3.90-5.03); White Blood Cell (WBC) Count 7.9 10x3/uL (3.5-10.5)
[2020-11-24 18:26] LABS: ALT (SGPT) 7 U/L (8-55); AST (SGOT) 8 U/L (5-34); Albumin 4.2 g/dL (3.4-4.8); Alkaline Phosphatase 147 U/L (40-110); Anion Gap 13 mmol/L (10-20); BUN (Urea Nitrogen) 10 mg/dL (9.8-20.1); Bilirubin, Total 0.6 mg/dL (0.2-1.2); Calc. Creatinine Clearance 0 mL/min (70-130); Calcium 9.9 mg/dL (7.8-10.44); Carbon Dioxide 33 mmol/L (23-31); Chloride 102 mmol/L (98-107); Globulin 2.7 g/dL (2.4-3.5); Glucose 98 mg/dL (80-115); Protein, Total 6.9 g/dL (5.8-8.1); Sodium 144 mmol/L (136-145)
[2020-11-25 02:59] LABS: SARS-CoV-2 PCR by NAA Not Detected (NotDetected)
== END 2020-11-24 17:10 | disposition home or self-care (01) ==
LOC: LABBT 17:09
PROVIDERS: ATTEND Internal Medicine Cardiovascular Disease
DX: Z01.812 Encounter for preprocedural laboratory examination (principal); Z20.822 Contact with and (suspected) exposure to COVID-19
CPT/HCPCS: 80053; 85025; 87635; U0003; U0005

== ENCOUNTER 2020-12-08 09:01 | Outpatient (CLI) | payer MEDICARE ==
[2020-12-08 17:26] LABS: SARS-CoV-2 PCR by NAA Not Detected (NotDetected)
== END 2020-12-08 09:02 | disposition home or self-care (01) ==
LOC: LABBT 09:01
PROVIDERS: ATTEND Internal Medicine Cardiovascular Disease
DX: Z01.812 Encounter for preprocedural laboratory examination (principal); Z20.822 Contact with and (suspected) exposure to COVID-19
CPT/HCPCS: U0003; U0005; 87635

== ENCOUNTER 2020-12-13 10:02 | Inpatient (IN) | payer MEDICARE ==
[~2020-12-13 10:02] MED LIST: Iopamidol 370 76% 100 ML VIAL ONE
[2020-12-13 13:58] LABS: #Lymphocytes 0.4 thou/uL (1.20-3.40); #Monocytes 0.1 thou/uL (0.11-0.59); #Neutrophils 8.2 thou/uL (1.40-6.50); %Basophils 0.1 % (0.0-1.0); %Eosinophils 0.2 % (0.0-10.0); %Lymphocytes 4.3 % (21.0-51.0); %Monocytes 1.5 % (0.0-10.0); %Neutrophils 93.9 % (42.0-75.0); Hemoglobin 11.4 g/dL (12.0-16.0); Mean Corpuscular HGB CONC 30.6 g/dL (32.0-36.0); Mean Platelet Volume 8.7 fL (7.4-10.4); Platelet Count 282 thou/uL (130-400); RBC Distribution Width 15.1 % (11.5-14.5); Red Blood Cell (RBC) Count 4.39 mill/uL (4.20-5.40); White Blood Cell (WBC) Count 8.7 thou/uL (4.8-10.8)
[2020-12-13] MEDS ORDERED: Furosemide 40 MG/4 ML VIAL SLOW IVP SCH (14:15)
[2020-12-13 14:22] LABS: ALT (SGPT) Less than 7 U/L (8-55); AST (SGOT) 6 U/L (5-34); Albumin 3.7 g/dL (3.4-4.8); Alkaline Phosphatase 125 U/L (40-110); Anion Gap 12 mmol/L (10-20); BUN (Urea Nitrogen) 21 mg/dL (9.8-20.1); Bilirubin, Total 0.4 mg/dL (0.2-1.2); Calc. Creatinine Clearance 46 mL/min (70-130); Calcium 9.8 mg/dL (7.8-10.44); Carbon Dioxide 28 mmol/L (23-31); Chloride 101 mmol/L (98-107); Globulin 2.8 g/dL (2.4-3.5); Glucose 287 mg/dL (80-115); Magnesium 1.6 mg/dL (1.6-2.6); Potassium 4.3 mmol/L (3.5-5.1); Protein, Total 6.5 g/dL (5.8-8.1); Sodium 137 mmol/L (136-145)
[2020-12-13] MEDS ORDERED: Furosemide 40 MG/4 ML VIAL ONE (15:02)
[2020-12-13] MEDS ORDERED: Nitroglycerin 2% Ointment 1 INCH/1 GM Packet ONE (15:08)
[2020-12-13] MEDS ORDERED: Nitroglycerin 2% Ointment 1 INCH/1 GM Packet TOP SCH ×2 (15:15→18:30)
[2020-12-13 16:47] VITALS: BMI 28.3
[2020-12-13] MEDS: hydrALAZINE 20 MG/ML VIAL SLOW IVP PRN (17:39)
[2020-12-13] MEDS ORDERED: NIFEdipine XL 30 MG TAB PO SCH (18:30)
[2020-12-13] MEDS: Mometasone 200 MCG/Formoterol 5 MCG 120 PUFF INHALER INH SCH (19:02)
[2020-12-13 19:21] LABS: Bacteria/HPF None Seen HPF (None Seen); Bilirubin Negative (Negative); Blood, Urine Negative (Negative); Clarity Clear (Clear); Glucose, Urine (Dipstick) Normal (Negative); Ketone, Urine Negative (Negative); Leukocyte 75 Leu/uL (Negative); Nitrite Negative (Negative); Protein, Urine (Dipstick) Negative (Neg-Trace); RBC/HPF 0-3 HPF (0-3); Specific Gravity, Urine 1.007 (1.002-1.036); Squamous Epithelial None Seen HPF (0-3); Urobilinogen Normal mg/dL (Less than 2); WBC/HPF 0-3 HPF (0-3)
[2020-12-13 19:22] LABS: Urine Culture Reflex Yes Yes
[2020-12-13] MEDS ORDERED: Benzonatate 100 MG CAP PO PRN (20:06)
[2020-12-13] MEDS ORDERED: cloNIDine 0.1 MG TAB PO SCH (21:00)
[2020-12-13] MEDS: Carvedilol 6.25 MG TAB PO SCH (21:43)
[2020-12-13] MEDS: Aspirin 81 mg Enteric Coated Tablet PO SCH (21:43)
[2020-12-13] MEDS ORDERED: Dextrose 5% in Water 1,000 ML IV PRN (21:44)
[2020-12-13] MEDS ORDERED: Dextrose 50% Abboject 50 ML SYRINGE SLOW IVP PRN (21:44)
[2020-12-13] MEDS: HumaLOG 300 UNITS/3 ML VIAL SC PRN (22:36)
[2020-12-14 01:57] LABS: SARS-CoV-2 PCR by NAA Not Detected (NotDetected)
[2020-12-14] MEDS ORDERED: cloNIDine 0.1 MG TAB PO PRN (02:17)
[2020-12-14 04:55] LABS: #Lymphocytes 0.9 thou/uL (1.20-3.40); #Monocytes 0.6 thou/uL (0.11-0.59); #Neutrophils 10.7 thou/uL (1.40-6.50); %Basophils 0.4 % (0.0-1.0); %Eosinophils 0.1 % (0.0-10.0); %Lymphocytes 6.9 % (21.0-51.0); %Neutrophils 87.6 % (42.0-75.0); Hemoglobin 11.2 g/dL (12.0-16.0); Mean Corpuscular HGB CONC 30.6 g/dL (32.0-36.0); Mean Corpuscular Hemoglobin 26.4 pg (27.0-31.0); Mean Corpuscular Volume 86.2 fL (78.0-98.0); Mean Platelet Volume 8.8 fL (7.4-10.4); Platelet Count 314 thou/uL (130-400); RBC Distribution Width 15.2 % (11.5-14.5); Red Blood Cell (RBC) Count 4.23 mill/uL (4.20-5.40); White Blood Cell (WBC) Count 12.3 thou/uL (4.8-10.8)
[2020-12-14 05:21] LABS: ALT (SGPT) Less than 7 U/L (8-55); AST (SGOT) 5 U/L (5-34); Albumin 3.6 g/dL (3.4-4.8); Alkaline Phosphatase 111 U/L (40-110); Anion Gap 11 mmol/L (10-20); BUN (Urea Nitrogen) 26 mg/dL (9.8-20.1); Bilirubin, Total 0.5 mg/dL (0.2-1.2); Calc. Creatinine Clearance 51 mL/min (70-130); Carbon Dioxide 33 mmol/L (23-31); Chloride 101 mmol/L (98-107); Globulin 2.7 g/dL (2.4-3.5); Glucose 142 mg/dL (80-115); Magnesium 1.7 mg/dL (1.6-2.6); Potassium 3.8 mmol/L (3.5-5.1); Protein, Total 6.3 g/dL (5.8-8.1); Sodium 141 mmol/L (136-145)
[2020-12-14] MEDS: Mometasone 200 MCG/Formoterol 5 MCG 120 PUFF INHALER INH SCH ×2 (07:59→18:29)
[2020-12-14] MEDS: Spironolactone 25 MG TAB PO SCH (08:01)
[2020-12-14] MEDS: Enoxaparin Sodium 40 MG/0.4 ML SYRINGE SC SCH (08:17)
[2020-12-14] MEDS: Amlodipine 10 MG TAB PO SCH (08:18)
[2020-12-14] MEDS: Atorvastatin Calcium 40 MG TAB PO SCH (08:18)
[2020-12-14] MEDS: Carvedilol 6.25 MG TAB PO SCH ×2 (08:18→20:33)
[2020-12-14] MEDS: Citalopram 20 MG TAB PO SCH (08:18)
[2020-12-14] MEDS ORDERED: ALPRAZolam 0.5 MG TAB PO PRN (18:57)
[2020-12-14] MEDS: Aspirin 81 mg Enteric Coated Tablet PO SCH (20:33)
[2020-12-14] MEDS: glipiZIDE 10 MG TAB PO SCH (20:33)
[2020-12-15] MEDS: Mometasone 200 MCG/Formoterol 5 MCG 120 PUFF INHALER INH SCH ×2 (07:26→19:46)
[2020-12-15] MEDS: Carvedilol 6.25 MG TAB PO SCH ×2 (08:06→21:45)
[2020-12-15] MEDS: Amlodipine 10 MG TAB PO SCH (08:06)
[2020-12-15] MEDS: Citalopram 20 MG TAB PO SCH (08:06)
[2020-12-15] MEDS: Spironolactone 25 MG TAB PO SCH (08:06)
[2020-12-15] MEDS: Atorvastatin Calcium 40 MG TAB PO SCH (08:06)
[2020-12-15] MEDS: Enoxaparin Sodium 40 MG/0.4 ML SYRINGE SC SCH (08:06)
[2020-12-15] MEDS: glipiZIDE 10 MG TAB PO SCH ×2 (08:07→21:45)
[2020-12-15] MEDS: Gabapentin 300 MG CAP PO SCH (08:07)
[2020-12-15] MEDS: Furosemide 20 MG TAB PO SCH (08:07)
[2020-12-15] MEDS: hydrALAZINE 20 MG/ML VIAL SLOW IVP PRN (11:15)
[2020-12-15] MEDS ORDERED: diphenhydrAMINE 25 MG CAP PO PRN (15:48)
[2020-12-15] MEDS ORDERED: Communication Order-Pharmacy FS SCH (16:00)
[2020-12-15] MEDS: predniSONE 20 MG TAB PO SCH ×2 (16:20→23:42)
[2020-12-15] MEDS: Sodium Chloride 0.9% 1,000 ML IV SCH (16:20)
[2020-12-15] MEDS ORDERED: Montelukast Sodium 10 mg Tablet PO SCH (21:00)
[2020-12-15] MEDS: Aspirin 81 mg Enteric Coated Tablet PO SCH (21:45)
[2020-12-15] MEDS: Famotidine 20 MG TAB PO SCH (21:45)
[2020-12-16] MEDS: Sodium Chloride 0.9% 1,000 ML IV SCH ×2 (03:04→12:55)
[2020-12-16 05:14] LABS: Anion Gap 14 mmol/L (10-20); BUN (Urea Nitrogen) 23 mg/dL (9.8-20.1); Calc. Creatinine Clearance 50 mL/min (70-130); Calcium 9.4 mg/dL (7.8-10.44); Carbon Dioxide 28 mmol/L (23-31); Chloride 100 mmol/L (98-107); Glucose 312 mg/dL (80-115); Potassium 4.2 mmol/L (3.5-5.1); Sodium 138 mmol/L (136-145)
[2020-12-16] MEDS ORDERED: Diazepam 5 MG TAB PO SCH (06:00)
[2020-12-16] MEDS: Mometasone 200 MCG/Formoterol 5 MCG 120 PUFF INHALER INH SCH ×2 (07:33→11:25)
[2020-12-16] MEDS ORDERED: Hydrocortisone Sod Succ/PF 100 mg/2 ml Vial ONE (08:14)
[2020-12-16] MEDS ORDERED: hydrALAZINE 20 MG/ML VIAL ONE (08:14)
[2020-12-16] MEDS ORDERED: Nitroglycerin 0.4 MG TAB (25 Tab Bottle) SL PRN (08:24)
[2020-12-16] MEDS ORDERED: Sodium Chloride 0.9% 200 ML IV PRN (08:24)
[2020-12-16] MEDS ORDERED: Sodium Chloride 0.9% 1,000 ML IV SCH (08:30)
[2020-12-16] MEDS ORDERED: Nitroglycerin 4.9 GM Bottle ONE (08:33)
[2020-12-16] MEDS: Carvedilol 6.25 MG TAB PO SCH (09:06)
[2020-12-16] MEDS: Atorvastatin Calcium 40 MG TAB PO SCH (09:06)
[2020-12-16] MEDS: Spironolactone 25 MG TAB PO SCH (09:06)
[2020-12-16] MEDS: predniSONE 20 MG TAB PO SCH (09:06)
[2020-12-16] MEDS: Amlodipine 10 MG TAB PO SCH (09:06)
[2020-12-16] MEDS: Enoxaparin Sodium 40 MG/0.4 ML SYRINGE SC SCH (09:07)
[2020-12-16] MEDS: Famotidine 20 MG TAB PO SCH (09:07)
[2020-12-16] MEDS: glipiZIDE 10 MG TAB PO SCH (09:07)
[2020-12-16] MEDS: Furosemide 20 MG TAB PO SCH (09:07)
[2020-12-16] MEDS: Citalopram 20 MG TAB PO SCH (09:07)
[2020-12-16] MEDS: Gabapentin 300 MG CAP PO SCH (09:07)
[2020-12-16] MEDS: HumaLOG 300 UNITS/3 ML VIAL SC PRN (11:10)
[2020-12-16] MEDS ORDERED: Iopamidol 370 76% 100 ML VIAL ONE (11:41)
[2020-12-16 15:14] VITALS: BP 129/58; TEMP 97.2
== END 2020-12-16 16:05 | disposition home or self-care (01) | DRG 154 ==
LOC: CCL 10:02 → 2NO 15:11
PROVIDERS: ADMIT Internal Medicine; ATTEND Internal Medicine
PROC: 04HY32Z Insertion of Monitoring Device into Lower Artery, Percutaneous Approach (ICD-10-PCS; principal; 2020-12-16)
DX: G47.33 Obstructive sleep apnea (adult) (pediatric) (principal); J96.21 Acute and chronic respiratory failure with hypoxia; I50.33 Acute on chronic diastolic (congestive) heart failure; I71.01 Dissection of thoracic aorta; I13.0 Hypertensive heart and chronic kidney disease with heart failure and stage 1 through stage 4 chronic kidney disease, or unspecified chronic kidney disease; J44.1 Chronic obstructive pulmonary disease with (acute) exacerbation; F17.210 Nicotine dependence, cigarettes, uncomplicated; E11.22 Type 2 diabetes mellitus with diabetic chronic kidney disease; I73.9 Peripheral vascular disease, unspecified; E66.9 Obesity, unspecified; N18.2 Chronic kidney disease, stage 2 (mild); I25.10 Atherosclerotic heart disease of native coronary artery without angina pectoris; Z99.89 Dependence on other enabling machines and devices; Z95.5 Presence of coronary angioplasty implant and graft; Z90.49 Acquired absence of other specified parts of digestive tract; Z91.14 Patient's other noncompliance with medication regimen; Z79.4 Long term (current) use of insulin; Z71.6 Tobacco abuse counseling; Z88.5 Allergy status to narcotic agent; Z88.0 Allergy status to penicillin; Z88.8 Allergy status to other drugs, medicaments and biological substances; Z68.28 Body mass index [BMI] 28.0-28.9, adult
CPT/HCPCS: 36140; 36415; 36416; 37224; 71045; 75710; 76942; 80048; 80053; 81001; 83735; 83880; 84484; 85025; 87077; 87086; 87186; 87635; 93005; 93010; 93306; 94640; 94664; 94760; J0360; J1650; J1720; J1815; J1940; J7512; J7620; Q0163; Q9967; U0003; U0005

== ENCOUNTER 2020-12-29 13:30 | Outpatient (CLI) | payer MEDICARE | END 2020-12-29 13:31 | disposition home or self-care (01) | LOC: BICULT 13:30 | PROVIDERS: ATTEND Internal Medicine Nephrology | DX: N18.30 Chronic kidney disease, stage 3 unspecified (principal); Q61.9 Cystic kidney disease, unspecified; E55.9 Vitamin D deficiency, unspecified; R80.9 Proteinuria, unspecified; D63.1 Anemia in chronic kidney disease; R53.83 Other fatigue | CPT/HCPCS: 36415; 76770; 80048; 82570; 83970; 84156; 85014; 85018 ==

== ENCOUNTER 2021-03-23 10:40 | Outpatient (CLI) | payer MEDICARE | END 2021-03-23 10:41 | disposition home or self-care (01) | LOC: BICRAD 10:40 | PROVIDERS: ATTEND Internal Medicine Critical Care Medicine | DX: R06.00 Dyspnea, unspecified (principal); I51.7 Cardiomegaly | CPT/HCPCS: 71046 ==